=== PATIENT | female | born 1975 ===

== ENCOUNTER 2016-12-05 19:01 | Emergency (ER) | payer MEDICAID, OTHER ==
[~2016-12-05] VITALS: Ht 157.5 cm; Wt 145.4 kg
[~2016-12-05 19:01] MED LIST: AMOX-366 PO; AMOX500T2 PO; HYDR-3090 PO; HYDR-3797 PO; HYG25 PO; INSU100V7 SUBQ; LISI-567 PO; LORA10CA PO; SYRI-233 MC
[2016-12-05 19:22] VITALS: BP 136/69; PULSE 82; O2SAT 97
--- NOTE | 2016-12-05 20:57 | ED.REPORT ---
HPI-General Illness Date of Service Dec 05, 2016 ED Provider: Peng Aguillon MD The patient is a 41 year old female with history of asthma, hypertension, heart failure, and diabetes mellitus type I, who presents to the emergency department complaining of a cough that has been ongoing over the last month. She has experienced a cough with green/brown sputum, chest pain secondary to cough, and sinus pressure. She was seen at urgent care and sent home with cough medicine with codeine. This morning she woke up feeling worse and developed increased sinus pressure, headache, and myalgias. She denies fever, chills, vomiting or diarrhea. Nursing Notes Stated Complaint: SINUS PRESSURE, COUGH, MIGRAINES Chief Complaint: General Complaint Nursing Notes Reviewed: Yes Allergies: Coded Allergies: No Known Allergies (Verified Allergy, Unknown, 11/07/15) Scheduled Amoxicillin (Amoxicillin) 500 Mg Tablet 1,000 MG PO BID Amoxicillin/Clav K 875-125 mg (Augmentin 875-125 mg) 1 Each Tablet 1 TABLET PO BID Chlorthalidone (Chlorthalidone) 25 Mg Tablet 25 MG PO DAILY Insulin Glargine (Lantus U100 Insulin Vial) 100 Unit/Ml Vial 60 UNIT SUBQ HS Lisinopril (Lisinopril) 20 Mg Tablet 20 MG PO DAILY Loratadine (Claritin) 10 Mg Capsule 10 MG PO DAILY Scheduled PRN Hydrocodone-Acetaminophen 5-300 mg (Hydrocodone-Acetaminophen 5-300 mg) 1 Each Tablet 1 TABLET PO Q4H PRN PRN For Pain Hydroxyzine Pamoate (HydrOXYzine Pamoate) 25 Mg Capsule 25-50 MG PO HS PRN PRN For Insomnia General Time Seen by MD: 20:55 Chief Complaint Cough Hx Obtained From: Patient Arrived By: Walk-in Sudden in Onset?: No Onset Occurred: More than a week ago... Symptom Duration: Since onset Location: : Chest: Face Quality: Painful Severity: Current: Moderate Severity: Maximum: Moderate Recent Healthcare: No recent hospitalization, Recent doctor visit Similar Sx Previous: No Past Medical History Past Medical History Morbid obese Diabetes, type II Asthma Hypertension History of diastolic heart failure chronic History of clinically suspected obstructive sleep apnea and obesity hypoventilation syndrome Past Surgical History Patient is status post a right oophorectomy and exlao for right tubo-ovarian abscess with sepsis on 07/22/2014 with a chronic wound followed at the wound care center Hernia repair x2, Ovary removal Reports: , Hysterectomy Family History Reports: Hypertension Smoking History Former Smoker Social History Alcohol Use: Denies alcohol use Drug Use: Denies drug use Occupation lives with partner Ambulatory Status Independent Review of Systems Full Review of Systems Constitutional: Denies: Chills, Fever Ears / Nose / Throat: Reports: Nasal congestion, Sinus problem Respiratory: Reports: Prod cough, brown, Prod cough, green Cardiovascular: Reports: Chest pain (secondary to cough) GI: Denies: Diarrhea, Vomiting Musculoskeletal: Reports: Myalgia Complete sys rev & neg: except as marked. Physical Exam Vital Signs Vital Signs Date Time Temp Pulse Resp B/P Pulse Ox O2 Delivery O2 Flow Rate FiO2 12/05/16 19:22 35.5 82 136/69 97 Room Air Initial VS: Reviewed Head / Eyes: Atraumatic, Normocephalic, PERRL Neck: Supple, Non-tender, Full range of motion Cardiovascular: Regular rate & rhythm, Heart sounds normal, Intact distal pulses Abdomen / GI: Soft, Non-tender, No guarding, No rebound, No distention Lymphatic: No lymphadenopathy Extremities: Vascular intact, Neuro intact, No swelling, No tenderness Skin: Warm, Dry, No cyanosis Neurologic: Alert, Oriented, Nonfocal Psychiatric: Mood/affect normal, Behavior normal, Normal thought content General/Constitutional: Awake, Alert, No acute distress, Cooperative ENT: Airway patent, Pharynx NL, Tympanic membs NL, Ext aud canal NL, Mastoid area NL Sinus: Positive: Tender frontal L, Tender frontal R, Tender maxillary L, Tender maxillary R, Tender moderate Respiratory / Chest: Breath sounds = bilat, No respiratory distress, No rales, No rhonchi Wheezing / Retractions: Positive: Wheezing mild Re-Eval/Medical Decision Source of Hx: Old records Time of Eval: 21:09 Re-Evaluation/Progress Note: Discussed plan for discharge. All questions were addressed. Counseled Regarding: Diagnosis, Need for follow-up, When/why to return to ED Discharge & Departure Primary Impression: Sinusitis Sinusitis location: unspecified location Chronicity: unspecified Qualified Code: J32.9 - Chronic sinusitis, unspecified Disposition: Home Discharge Condition All VS Reviewed: Yes Condition: Stable Patient Instructions: Sinusitis (ED) Additional Instructions: Thank you for entrusting us with your care today. I believe you will significantly benefit from nasal irrigation. I recommend using warm water while you are in the shower. Make sure you are getting the water up your nose and back into your throat. I recommend doing this 3-4 times a day. This will help clear your sinuses and relieve some of the pressure. You should also use a nasal decongestant. Do not use any antihistamines. Make sure to drink plenty of fluids. If you symptoms continue you should be seen by your primary doctor in 1 week. Seek care sooner for any new or concerning symptoms. Referrals: Paty Bergeron MD Attestation Portions of this note were transcribed by Dee Woods. I, Dr. Aguillon personally performed the history, physical exam and medical decision-making; I reviewed and confirmed the accuracy of the information in the transcribed note. Signed by: Chad Rubio, 12/05/2016 at 2130. copies to: Paty Bergeron MD, Kirk H MD Dec 05, 2016 20:57 Dee Woods Dec 05, 2016 21:13 Dee Woods Dec 05, 2016 21:13
[2016-12-05] MEDS ORDERED: BENZ-12 PO (21:36)
== END 2016-12-05 21:50 | disposition home or self-care (01) ==
LOC: SED 19:01
DX: J32.9 Chronic sinusitis, unspecified (principal); I11.0 Hypertensive heart disease with heart failure; I50.32 Chronic diastolic (congestive) heart failure; E11.59 Type 2 diabetes mellitus with other circulatory complications; Z87.891 Personal history of nicotine dependence; Z79.4 Long term (current) use of insulin

== ENCOUNTER 2017-03-22 18:59 | Emergency (ER) | payer MEDICAID, OTHER ==
[~2017-03-22] VITALS: Ht 157.5 cm; Wt 154.6 kg
[~2017-03-22 18:59] MED LIST changes: +BENZ-12 PO
[2017-03-22 19:21] VITALS: BP 139/77; PULSE 68; RESP 18; O2SAT 97
[2017-03-22] MEDS ORDERED: Ondansetron 2 mg/mL 2 mL Inj IVPUSH PRN (21:15)
--- NOTE | 2017-03-22 21:46 | ED.REPORT ---
HPI-Abd Pain F 40 and Over Date of Service Mar 22, 2017 ED Provider: Wing Odom MD Pt is a morbidly obese 41 y/o female w/ a hx of IDDM, HTN, CHF, presenting to the ED c/o worsening intermittent LLQ abdominal pain onset 1 week ago. Her pain today feels similar to prior pelvic pain caused by a large right tubo-ovarian abscess which required surgical removal of the ovary. She c/o associated nausea. She denies chance of , vaginal bleeding or abnormal discharge, CP, vomiting, dysuria, fever, chills. Her last period was last month. Abdominal surgeries include: right ovary removal, hernia repair x2, x3. She states her recent periods have been much heavier than usual and lasting 7 days, increased from her usual 3. Nursing Notes Stated Complaint: PAIN ON LEFT SIDE OVARY Chief Complaint: Female Abdominal Pain Nursing Notes Reviewed: Yes Allergies: Coded Allergies: No Known Allergies (Verified Allergy, Unknown, 11/07/15) Scheduled Amoxicillin (Amoxicillin) 500 Mg Tablet 1,000 MG PO BID Amoxicillin/Clav K 875-125 mg (Augmentin 875-125 mg) 1 Each Tablet 1 TABLET PO BID Cephalexin (Keflex) 500 Mg Capsule 500 MG PO QID Chlorthalidone (Chlorthalidone) 25 Mg Tablet 25 MG PO DAILY Insulin Glargine (Lantus U100 Insulin Vial) 100 Unit/Ml Vial 60 UNIT SUBQ HS Lisinopril (Lisinopril) 20 Mg Tablet 20 MG PO DAILY Loratadine (Claritin) 10 Mg Capsule 10 MG PO DAILY Scheduled PRN Benzonatate (Tessalon Perle) 100 Mg Capsule 100 MG PO TID PRN PRN For Cough Hydrocodone-Acetaminophen 5-300 mg (Hydrocodone-Acetaminophen 5-300 mg) 1 Each Tablet 1 TABLET PO Q4H PRN PRN For Pain Hydrocodone-Acetaminophen 5-325 mg (Hydrocodone-Acetaminophen 5-325 mg) 1 Each Tablet 1 TABLET PO Q4H PRN PRN For Pain Hydroxyzine Pamoate (HydrOXYzine Pamoate) 25 Mg Capsule 25-50 MG PO HS PRN PRN For Insomnia General Time Seen by MD: 21:08 Chief Complaint Abdominal pain Hx Obtained From: Patient Arrived By: Walk-in Sudden in Onset?: No Onset Occurred: 1 week ago Symptom Duration: Since onset Progression since Onset: Intermittent Location: : LLQ Quality: Painful Radiation: : Does not radiate Severity: Current: Moderate Severity: Maximum: Moderate Recent Healthcare: Previous diagnosis Similar Sx Previous: Yes Past Medical History Past Medical History Morbidly obese Diabetes, type II Asthma Hypertension History of diastolic heart failure chronic History of clinically suspected obstructive sleep apnea and obesity hypoventilation syndrome Past Surgical History Patient is status post a right oophorectomy and exlao for right tubo-ovarian abscess with sepsis on 07/22/2014 with a chronic wound followed at the wound care center Hernia repair x2, Ovary removal Reports: , Hysterectomy Family History Reports: Hypertension Smoking History Former Smoker Social History Alcohol Use: Denies alcohol use Drug Use: Denies drug use Occupation lives with partner Ambulatory Status Independent Review of Systems Constitutional: Denies: Chills, Fever Respiratory: Denies: Non-productive cough, Shortness of breath Cardiovascular: Denies: Chest pain, Dyspnea on exertion GI: Reports: Abdominal pain, Nausea, Denies: Vomiting Female: Denies: Dysuria, Vaginal bleeding - abnl, Vaginal discharge Complete sys rev & neg: except as marked. Physical Exam Vital Signs Vital Signs (First) Date Time Temp Pulse Resp B/P Pulse Ox O2 Delivery O2 Flow Rate FiO2 03/22/17 19:21 36.7 68 18 139/77 97 Room Air Initial VS: Reviewed, Vital signs normal Head / Eyes: Atraumatic, Normocephalic, PERRL ENT: Mucous membranes moist, Conjunctiva normal, No scleral icterus Neck: Supple, Full range of motion Extremities: Vascular intact, Neuro intact, No swelling Skin: Warm, Dry, No cyanosis Neurologic: Alert, Oriented, Nonfocal Psychiatric: Mood/affect normal, Behavior normal, Normal thought content General/Constitutional: Awake, Alert, No acute distress, Cooperative, Not toxic appearing Appearance / Presentation: Positive: Obese, morbidly Respiratory / Chest: Breath sounds NL, Breath sounds = bilat, No respiratory distress, No rales, No rhonchi, No wheezing Cardiovascular: Heart rate NL, Regular rhythm, Heart sounds NL, No murmurs Abdomen: Atraumatic, Soft, No guarding, No rebound, No distention Tenderness/Guarding/Rebound: Positive: Tender LLQ... (Mild) Morbidly obese Back: Full range of motion, Painless range of motion, No CVA tenderness Female Genitourinary: Hat Maker present, No bleeding, No discharge, No cervical motion tend, Os closed Mild left adnexal tenderness Interpretation & Diagnostics Lab Results Interpretation Result Diagram: 03/22/17215303/22/[id number] Test 03/22/17 21:41 03/22/17 21:54 Urine Color Yellow (YELLOW) Urine Appearance Cloudy (CLEAR,HAZY) Urine pH 7.0 (5.0-8.0) Urine Specific [place] 1.014 (1.003-1.035) Urine Protein Negativemg/dL (NEG,TRACE) Urine Glucose (UA) Negativemg/dL (NEGATIVE) Urine Ketones Negativemg/dL (NEGATIVE) Urine Occult Blood Negative (NEGATIVE) Urine Nitrite Negative (NEGATIVE) Urine Bilirubin Negative (NEGATIVE) Urine Urobilinogen 2mg/dL (NORMAL) Urine Leukocyte Esterase Moderate (NEGATIVE) Urine RBC 0-2/hpf (0-2) Urine WBC 11-50/hpf (0-5) Urine Epithelial Cells Many/hpf (NONE-MOD) Urine Crystals None seen (NONE SEEN) Urine Bacteria Many/hpf (NONE-FEW) Urine Hyaline Casts None/lpf (NONE) Urine Granular Casts None seen (NONE SEEN) Urine Waxy Casts None seen (NONE SEEN) Urine Red Blood Cell Casts None seen (NONE SEEN) Urine White Blood Cell Casts None seen (NONE SEEN) Urine Mucus None seen (None Seen) Urine Trichomonas None seen (NONE SEEN) Urine Yeast None (NONE SEEN) Urinalysis Comment Transitional epi Urine Culture Reflexed Indicated White Blood Count 13.3th/mm3 (3.8-10.1) Red Blood Count 5.48mil/mm3 (3.90-5.20) Hemoglobin 12.3g/dL (12.0-15.6) Hematocrit 40.2% (35.0-46.0) Mean Corpuscular Volume 73.4fL (81-100) Mean Corpuscular Hemoglobin 22.4pg (27.0-35.0) Mean Corpuscular Hemoglobin Concent 30.6% (32.0-37.0) Red Cell Distribution Width 16.5% (12.3-15.4) Platelet Count 374bil/L (150-400) Neutrophils (%) (Auto) 61.3% (40-74) Lymphocytes (%) (Auto) 30.8% (14-46) Monocytes (%) (Auto) 4.4% (4-12) Eosinophils (%) (Auto) 2.7% (0-5) Basophils (%) (Auto) 0.3% (0-3) Sodium Level 138mEq/L (134-144) Potassium Level 4.0mEq/L (3.5-5.2) Chloride Level 102mEq/L (97-108) Carbon Dioxide Level 24mmol/L (18-29) Blood Urea Nitrogen 7mg/dL (6-24) Creatinine 0.69mg/dL (0.57-1.00) Estimat Glomerular Filtration Rate 134mL/min (>59) Glucose Level 118mg/dL (60-99) Calcium Level 8.9mg/dL (8.5-10.1) Magnesium Level 2.2mg/dL (1.6-2.6) Total Bilirubin 0.4mg/dL (0.0-1.2) Aspartate Amino Transf (AST/SGOT) 23U/L (0-50) Alanine Aminotransferase (ALT/SGPT) 21U/L (0-32) Alkaline Phosphatase 108U/L (25-150) Total Protein 8.3g/dL (6.4-8.4) Albumin 3.9g/dL (3.4-5.0) Lipase 35U/L (13-60) US Focused non-OB Pelvis 2 large ovarian cysts on left. Good blood flow to left ovary Exam Performed by: [facility] Exam Interpreted by: [facility] Re-Eval/Medical Decision Med Decision/Clinical Course 41-year-old female presenting with left lower quadrant, left adnexal tenderness intermittent times one week. Her vital signs are stable. She has mild left suprapubic tenderness. Mild left adnexal tenderness on exam. Urine suggests UTI. Her labs are unremarkable. Pelvic ultrasound shows 2 large left ovarian cyst. Exam shows no evidence of discharge, cervical motion tenderness. Pain possibly due to her left ovarian cyst versus UTI. She has no sensitives pyelonephritis. She would treat it with Keflex for a UTI. Recommend she follow up with primary doctor in 2-3 days for possible referral to [facility] for ovarian cysts. Also follow-up for her UTI. She is advised to return if any sign symptoms pyelonephritis, worsening back pain, abdominal pain, fevers, nausea vomiting, worsening left lower quadrant pain, any other new or worsening symptoms. Source of Hx: Old records Re-Evaluation/Progress : Time of Eval: 23:59 Re-Evaluation/Progress Note: Pt rechecked. Informed pt of plan for discharge. Pt understands and agrees with plan for discharge. F/U instructions and RTER warnings given. All questions addressed. Counseled Regarding: Diagnosis, Lab results, Need for follow-up, When/why to return to ED Discharge & Departure Primary Impression: UTI (urinary tract infection) Urinary tract infection type: site unspecified Hematuria presence: without hematuria Qualified Code: N39.0 - Urinary tract infection, site not specified Additional Impressions: Ovarian cyst, left Abdominal pain Abdominal location: left lower quadrant Qualified Code: R10.32 - Left lower quadrant pain Disposition: Home Discharge Condition All VS Reviewed: Yes Condition: Stable Patient Instructions: Urinary Tract Infection in Women (ED) Additional Instructions: Your urine showed signs of infection. The rest of your labs were reassuring. The ultrasound showed that you have 2 large ovarian cysts on your left ovary. Take the full course of Keflex as directed for the UTI. Return to the emergency department if you experience worsening abdominal pain, severe back or flank pain, fever, vomiting, or other concerning symptoms. Follow-up with your primary care doctor in 2-3 days for a recheck. Referrals: Martha Sepulveda MD (PCP) Chad Attestation Portions of this note were transcribed by Jimmie Cruz. I, Dr. Odom personally performed the history, physical exam and medical decision-making; I reviewed and confirmed the accuracy of the information in the transcribed note. Signed by Chad Sousa, 03/22/[id number] copies to: Martha Sepulveda MD, Ben M MD Mar 22, 2017 21:45 JIMMIE CRUZ Mar 22, 2017 21:52
[2017-03-22 21:56] VITALS: BP 152/59; PULSE 71; O2SAT 97
[2017-03-22 22:20] LABS: BASOPHILS % (AUTO) 0.3 % (0-3); EOSINOPHILS % (AUTO) 2.7 % (0-5); MONOCYTES % (AUTO) 4.4 % (4-12); Mean Corpuscular Hemoglobin 22.4 pg (27.0-35.0); Mean Corpuscular Volume 73.4 fL (81-100); NEUTROPHILS % (AUTO) 61.3 % (40-74); Platelet Count 374 bil/L (150-400)
[2017-03-22 22:33] LABS: Magnesium 2.2 mg/dL (1.6-2.6)
[2017-03-22 23:12] LABS: APPEARANCE,URINE CLOUDY (CLEAR,HAZY); COLOR,URINE YELLOW (YELLOW)
[2017-03-22 23:14] LABS: OCCULT BLOOD,URINE NEGATIVE (NEGATIVE); UROBILINOGEN,URINE 2 mg/dL (NORMAL)
[2017-03-22] MEDS ORDERED: CEPH-512 PO (23:20)
[2017-03-22] MEDS ORDERED: HYDR-4003 PO (23:58)
[2017-03-23] MEDS ORDERED: HYDROcodone-APAP 5-325 mg Tablet PO ONE
[2017-03-23 00:43] VITALS: BP 134/72; PULSE 70; O2SAT 95
--- NOTE | 2017-03-23 08:26 | DRSVH ---
PROCEDURE: US PELVIC SONOGRAM + TRANSVAGINAL SONOGRAM INDICATIONS: Left adnexal tenderness TECHNIQUE: Real-time scanning was performed of the pelvic organs, with image documentation. Additional endovagi nal scanning was necessary due to incomplete visualization of the adnexal and endometrial structures by transabdominal scanning. COMPARISON: [facility], [place], US PELVIC+TRANSVAG, 11/07/2015, 16:41. FINDINGS: (orthogonal measurements) Uterus size: 7.83 cm, 3.86 cm, 5.35 cm Endometrium thickness: 1.14 cm Left ovary size: 6.66 cm, 5.00 cm, 5.00 cm Transabdominal scanning: Limited scanning through the kidneys shows no hydronephrosis. No pathologi c free abdominal or pelvic fluid. Endovaginal scanning: Uterus: Uterus is normal in size and appearance. Endometrium is within normal physiologic limits. Ovaries: 2 simple cysts involving left ovary measuring 4.3 x 3.3 x 3.6 cm and 4.2 x 3.8 x 4.4 cm. Ri ght ovary surgically absent. Color-flow Doppler demonstrates normal flow within the left ovary. Tra ce left adnexal nonhemorrhagic free fluid. IMPRESSION: 2 simple cysts involving the right ovary. Continued sonographic surveillance is recommen ded. Note: These findings are concordant with the preliminary interpretation. Dictated by: Severiano WESTON Interpreted: Hung Ramos MD on 03/23/2017 at 8:21 Transcribed by: SHAVON on 03/23/2017 at 8:25 Approved by: Hung Ramos M.D. on 03/23/2017 at 9:16
== END 2017-03-23 00:46 | disposition home or self-care (01) ==
LOC: SED 18:59
DX: N39.0 Urinary tract infection, site not specified (principal); B96.20 Unspecified Escherichia coli [E. coli] as the cause of diseases classified elsewhere; N83.202 Unspecified ovarian cyst, left side; R10.32 Left lower quadrant pain; I11.0 Hypertensive heart disease with heart failure; I50.32 Chronic diastolic (congestive) heart failure; E11.59 Type 2 diabetes mellitus with other circulatory complications; J45.909 Unspecified asthma, uncomplicated; Z87.891 Personal history of nicotine dependence; Z79.4 Long term (current) use of insulin
CPT/HCPCS: 36415; 76830; 76856; 80053; 81000; 81025; 83690; 83735; 85025; 87077; 87086; 87088; 87186; 96374; 96375; 99285; J2270; J2405

== ENCOUNTER 2017-04-03 14:39 | Inpatient (IN) | payer MEDICAID, OTHER ==
[~2017-04-03] VITALS: Ht 157.5 cm; Wt 157.0 kg
[~2017-04-03 14:39] MED LIST changes: +CEPH-512 PO; +HYDR-4003 PO
[2017-04-03 14:41] VITALS: BP 138/78; PULSE 79; RESP 16; O2SAT 98
[2017-04-03] MEDS ORDERED: Ondansetron 2 mg/mL 2 mL Inj IVPUSH ONE ×2 (14:55→20:05)
[2017-04-03] MEDS ORDERED: Ketorolac 15 mg/mL Inj IVPUSH ONE (14:55)
[2017-04-03] MEDS ORDERED: 0.9% Sodium Chloride 1,000 ML IV ONE (14:55)
--- NOTE | 2017-04-03 14:55 | ED.REPORT ---
HPI-General Illness Date of Service Apr 03, 2017 ED Provider: Ki Collins MD The pt is a 41 y/o female with a hx of IDDM, HTN, CHF and right tubo-ovarian abscess (leading to surgical removal of her right ovary) who presents to the ED complaining of intermittent, non-radiating left lower quadrant abdominal pain for the last 3 weeks that worsened last night. She describes it as a stabbing pain and rates it 10/10 in severity. Associated sx include nausea and vomiting. She denies abnormal vaginal discharge, abnormal vaginal bleeding, dysuria, hematochezia, hematuria, fever, diarrhea and chest pain . She is not sexually active. Her current sx are similar to the time she was diagnosed with right tubo -ovarian abscess. She was seen at the ED last week for the same complaint. Her ultrasound at the time showed 2 large ovarian cysts on the left with good blood flow to left ovary and she was discharged with Keflex. She also states that before her previous visit, she did experience heavy, abnormal vaginal bleeding. Nursing Notes Stated Complaint: VOMITING,POSS OVARY CYST Chief Complaint: Female Abdominal Pain Nursing Notes Reviewed: Yes Allergies: Coded Allergies: No Known Allergies (Verified Allergy, Unknown, 04/03/17) Scheduled Amoxicillin (Amoxicillin) 500 Mg Tablet 1,000 MG PO BID Amoxicillin/Clav K 875-125 mg (Augmentin 875-125 mg) 1 Each Tablet 1 TABLET PO BID Cephalexin (Keflex) 500 Mg Capsule 500 MG PO QID Chlorthalidone (Chlorthalidone) 25 Mg Tablet 25 MG PO DAILY Insulin Glargine (Lantus U100 Insulin Vial) 100 Unit/Ml Vial 60 UNIT SUBQ HS Lisinopril (Lisinopril) 20 Mg Tablet 20 MG PO DAILY Loratadine (Claritin) 10 Mg Capsule 10 MG PO DAILY Meloxicam (Meloxicam) 7.5 Mg Tablet 7.5 MG PO BID Scheduled PRN Benzonatate (Tessalon Perle) 100 Mg Capsule 100 MG PO TID PRN PRN For Cough Hydrocodone-Acetaminophen 5-300 mg (Hydrocodone-Acetaminophen 5-300 mg) 1 Each Tablet 1 TABLET PO Q4H PRN PRN For Pain Hydrocodone-Acetaminophen 5-325 mg (Hydrocodone-Acetaminophen 5-325 mg) 1 Each Tablet 1 TABLET PO Q4H PRN PRN For Pain Hydroxyzine Pamoate (HydrOXYzine Pamoate) 25 Mg Capsule 25-50 MG PO HS PRN PRN For Insomnia Ibuprofen (Ibuprofen) 400 Mg Tablet 400 MG PO QID PRN PRN For Pain General Time Seen by MD: 14:54 Chief Complaint Abdominal pain Hx Obtained From: Patient Arrived By: Walk-in Sudden in Onset?: No Onset Occurred: More than a week ago... (3 weeks) Symptom Duration: Intermittent Location: : Abdomen Quality: Stabbing Severity: Current: Pain level 10 out of 10 Severity: Maximum: Pain level 10 out of 10 Recent Healthcare: Recent doctor visit Similar Sx Previous: Yes Past Medical History Past Medical History Morbidly obese Diabetes, type II Asthma Hypertension History of diastolic heart failure chronic History of clinically suspected obstructive sleep apnea and obesity hypoventilation syndrome Past Surgical History Patient is status post a right oophorectomy and exlao for right tubo-ovarian abscess with sepsis on 07/22/2014 with a chronic wound followed at the wound care center Hernia repair x2, Ovary removal Reports: , Hysterectomy Family History Reports: Hypertension Smoking History Former Smoker Social History Alcohol Use: Denies alcohol use Drug Use: Denies drug use Occupation lives with partner Ambulatory Status Independent Review of Systems Full Review of Systems Constitutional: Denies: Fever Eyes: Denies: Blurred bilateral, Diplopia Ears / Nose / Throat: Denies: Throat swelling Respiratory: Denies: Shortness of breath Cardiovascular: Denies: Chest pain GI: Reports: Abdominal pain, Nausea, Vomiting, Denies: Diarrhea, Hematochezia Female: Denies: Dysuria, Hematuria, Vaginal bleeding - abnl, Vaginal discharge Musculoskeletal: Denies: Back pain Hematologic: Denies Bruising Endocrine: Denies: Polyuria Allergy / Immune: Denies: Itching Neurologic: Denies: Headache Psychiatric: Denies: Change mental status Complete sys rev & neg: except as marked. Physical Exam Nursing note and vitals reviewed. Constitutional: Well-developed, well-nourished. Not diaphoretic. Head: Normocephalic and atraumatic. Mouth/Throat: Oropharynx is clear and moist. No oropharyngeal exudate. Eyes: EOM are normal. Pupils are equal, round, and reactive to light. Neck: Supple, no tracheal deviation. Cardiovascular: Normal rate,regular rhythm. Equal and intact distal pulses throughout. Pulmonary/Chest: Effort normal and breath sounds normal. No respiratory distress. Abdominal: Soft. No distension. There is lower left quadrant tenderness to palpation without rebound, or guarding. Bowel sounds present. Musculoskeletal: Range of motion grossly intact, moving all extremities. No edema or tenderness appreciated. Neurological: AOx3. Grossly nonfocal exam. Strength and sensation intact and equal to bilateral upper and lower extremities. Skin: Warm and dry, no rashes or pallor appreciated. Psychiatric: Appropriate mood and affect. Behavior appears normal. Female : Research [employer] present. Limited exam due to body habitus.Unable to palpate cervix.No discharge. Don't appreciate adnexal fullness. Vital Signs Vital Signs Date Time Temp Pulse Resp B/P Pulse Ox O2 Delivery O2 Flow Rate FiO2 04/03/17 19:48 80 17 145/75 95 Room Air 04/03/17 14:41 36.7 79 16 138/78 98 Room Air Initial VS: Reviewed Interpretation & Diagnostics PROCEDURE: US PELVIC SONOGRAM + TRANSVAGINAL SONOGRAM IMPRESSION: 1. Other than a fibroid and nabothian cyst the uterus is normal. 2. The left ovary is enlarged and includes organs involved by a cystic structure. This is best seen on CT scan. It has enlarged since previous CT scans. Although unlikely malignancy cannot be excluded. Dictated by: Teo Noriega M.D. on 04/03/2017 at 18:38 Approved by: Teo Noriega M.D. on 04/03/2017 at 18:42 Lab Results Interpretation Result Diagram: 04/03/17 1550 04/03/17 1550 Test 04/03/17 15:50 04/03/17 16:56 04/03/17 17:02 04/03/17 17:31 White Blood Count 9.9th/mm3 (3.8-10.1) Red Blood Count 5.50mil/mm3 (3.90-5.20) Hemoglobin 12.3g/dL (12.0-15.6) Hematocrit 40.2% (35.0-46.0) Mean Corpuscular Volume 73.1fL (81-100) Mean Corpuscular Hemoglobin 22.4pg (27.0-35.0) Mean Corpuscular Hemoglobin Concent 30.6% (32.0-37.0) Red Cell Distribution Width 16.5% (12.3-15.4) Platelet Count 316bil/L (150-400) Neutrophils (%) (Auto) 59.8% (40-74) Lymphocytes (%) (Auto) 31.9% (14-46) Monocytes (%) (Auto) 5.0% (4-12) Eosinophils (%) (Auto) 2.6% (0-5) Basophils (%) (Auto) 0.3% (0-3) Sodium Level 140mEq/L (134-144) Potassium Level 4.1mEq/L (3.5-5.2) Chloride Level 103mEq/L (97-108) Carbon Dioxide Level 23mmol/L (18-29) Blood Urea Nitrogen 8mg/dL (6-24) Creatinine 0.66mg/dL (0.57-1.00) Estimat Glomerular Filtration Rate 141mL/min (>59) Glucose Level 139mg/dL (60-99) Calcium Level 8.6mg/dL (8.5-10.1) Magnesium Level 2.0mg/dL (1.6-2.6) Total Bilirubin 0.7mg/dL (0.0-1.2) Aspartate Amino Transf (AST/SGOT) 22U/L (0-50) Alanine Aminotransferase (ALT/SGPT) 18U/L (0-32) Alkaline Phosphatase 103U/L (25-150) Total Protein 8.0g/dL (6.4-8.4) Albumin 3.7g/dL (3.4-5.0) Lipase 28U/L (13-60) Lactic Acid Level 0.8mmol/L (0.4-2.0) Urine Color Dark yellow (YELLOW) Urine Appearance Cloudy (CLEAR,HAZY) Urine pH 6.0 (5.0-8.0) Urine Specific [place] 1.030 (1.003-1.035) Urine Protein Tracemg/dL (NEG,TRACE) Urine Glucose (UA) Negativemg/dL (NEGATIVE) Urine Ketones Negativemg/dL (NEGATIVE) Urine Occult Blood Trace (NEGATIVE) Urine Nitrite Negative (NEGATIVE) Urine Bilirubin Negative (NEGATIVE) Urine Urobilinogen Normalmg/dL (NORMAL) Urine Leukocyte Esterase Trace (NEGATIVE) Urine RBC 3-10/hpf (0-2) Urine WBC 11-50/hpf (0-5) Urine Epithelial Cells Moderate/hpf (NONE-MOD) Urine Crystals None seen (NONE SEEN) Urine Bacteria Few/hpf (NONE-FEW) Urine Hyaline Casts None/lpf (NONE) Urine Granular Casts None seen (NONE SEEN) Urine Waxy Casts None seen (NONE SEEN) Urine Red Blood Cell Casts None seen (NONE SEEN) Urine White Blood Cell Casts None seen (NONE SEEN) Urine Mucus Present (None Seen) Urine Trichomonas None seen (NONE SEEN) Urine Yeast None (NONE SEEN) Urinalysis Comment None Urine Culture Reflexed Indicated CT Abd / Pelvis Interpretation IMPRESSION: 1. 41 x 56 x 69 mm heterogeneous cystic and solid lesion in the left adnexa. This is similar to but more prominent in size than the lesion appeared on the CT scan of 11/07/15 at which time it measured 5.4 x 3 x 5.8 mm. Malignancy is not excluded. No free fluid is identified. 2. Diffusely fatty liver. 3. Ventral hernias as described. Dictated by: Teo Noriega M.D. on 04/03/2017 at 18:18 case was discussed with Dr. Collins. Approved by: Teo Noriega M.D. on 04/03/2017 at 18:35 Study type: Abdominal CT IV contrast Interpretation / Wet Read by: Interpret - Radiologist Re-Eval/Medical Decision Med Decision/Clinical Course In summary, 41-year-old female with a history of a tubo-ovarian abscess presenting to the ED for evaluation of left lower quadrant pain. Differential is broad and includes tubo-ovarian abscess, small bowel obstruction, diverticulitis, inflammatory bowel disease, ovarian torsion, intra-abdominal/ intrapelvic mass, appendicitis, pyelonephritis, kidney stone. Initial laboratory studies here notable for a CBC and CMP grossly within normal limits. Lipase within normal limits. She does have 11-50 white blood cells in her urine, however also moderate epithelial cells, no dysuria; suspect that this is likely contamination, however urine culture sent. Pelvic exam with no obvious masses appreciated, however limited by patient's habitus. Ultrasound demonstrates an enlarged left ovary with possible mass. CT scan demonstrates a 4 x 6 x 7 heterogeneous cystic and solid lesion in the left adnexa. Unclear what exactly this is at this time; differential includes malignancy, hemorrhagic cyst, etc. Discussed with NUMERICAL CONTROL MACHINE MACHINIST as noted below. Patient given multiple doses of Dilaudid IV here in the ED with only minimal improvement in symptoms. Also given Zofran and IV fluids. Hemodynamically stable. Given the above, plan admission for further management and evaluation. Patient agreeable to the plan as stated, no further questions. Source of Hx: Old records Time of Eval: 19:39 Re-Evaluation/Progress Note: Rechecked pt. Discussed lab results, imaging results, diagnosis and the plan to consult her NUMERICAL CONTROL MACHINE MACHINIST. She understands and agrees with the plan. All questions answered. Time of Eval: 20:00 Re-Evaluation/Progress Note: Rechecked the pt. She would like to be admitted. Discussed the plan to admit. The pt understands and agrees. All questions answered. Consultation #1: Call Returned at: 19:52 Stagecraft Teacher: Will see patient Note: Consulted Dr. Joiner, conveyor belt installer for Dr. Lyn, pt's NUMERICAL CONTROL MACHINE MACHINIST. She recommends pain control medications and follow up. Consultation #2: Referral / Consult Name: Mynor Moncada MD Call Returned at: 20:06 Stagecraft Teacher: Will see patient, Agrees with eval, Agrees with plan Note: Recommends pt stay NPO after midnight and pain control is okay. Consultation #3: Referral / Consult Name: Amy Mccarthy DO Consulted With: Hospitalist Call Returned at: 20:29 Stagecraft Teacher: Will see patient, Agrees with eval, Agrees with plan, Accepts admit Counseled Regarding: Diagnosis, Lab results Discharge & Departure Primary Impression: Pelvic pain Additional Impression: Pelvic mass Disposition: ADMITTED TO HOSPITAL Discharge Condition All VS Reviewed: Yes Referrals: Martha Sepulveda MD (PCP) Scribtal Attestation Portions of this note were transcribed by Gavi Radford. I,, personally performed the history, physical exam and medical decision-making;I reviewed and confirmed the accuracy of the information in the transcribed note. Signed by Chad Dougherty. 04/03/17 copies to: Martha Sepulveda MD,Ki Beard MD Apr 03, 2017 14:55 Gavi Radford Apr 03, 2017 15:02
[2017-04-03 16:19] LABS: Mean Corpuscular Hemoglobin 22.4 pg (27.0-35.0); Mean Corpuscular Volume 73.1 fL (81-100); Platelet Count 316 bil/L (150-400)
[2017-04-03 16:20] LABS: BASOPHILS % (AUTO) 0.3 % (0-3); EOSINOPHILS % (AUTO) 2.6 % (0-5); NEUTROPHILS % (AUTO) 59.8 % (40-74)
[2017-04-03] MEDS ORDERED: HYDROmorphone 0.5 mg/0.5 mL iSecure Syringe IVPUSH ONE ×2 (16:35→19:40)
[2017-04-03 17:55] LABS: APPEARANCE,URINE CLOUDY (CLEAR,HAZY); COLOR,URINE DARK YELLOW (YELLOW); OCCULT BLOOD,URINE TRACE (NEGATIVE); UROBILINOGEN,URINE NORMAL (NORMAL)
--- NOTE | 2017-04-03 18:37 | DRSVH ---
PROCEDURE: CT ABDOMEN AND PELVIS WITH CONTRAST ([id number]) INDICATIONS: LLQ pain TECHNIQUE: After the administration of intravenous contrast, 5 mm thick sections acquired from the diaphragm to the symphysis. 5 mm coronal and sagittal reformats were acquired. For radiation dose reduction, the following was used: automated exposure control, adjustment of mA and/or kV according to patient skip parada. COMPARISON: [facility], CT, ABD/PELVIS W/CON (PNL), 10/29/2014, 14:27. FINDINGS: Image quality: Excellent. ABDOMEN: Lung bases: Lung bases are clear. Heart size is normal. Solid organs: Liver and spleen are normal in size and enhancement. There is diffuse fatty infiltrati on within the liver. Gallbladder is within normal limits. Biliary system is non dilated. Pancreas enhances normally. No adrenal nodules. Kidneys demonstrate normal size and enhancement, without hyd ronephrosis. Peritoneum and bowel: Bowel loops demonstrate normal wall thickness and caliber. No free fluid or a ir. An appendix is not seen. There are scattered colonic diverticula no inflammation. Nodes and vessels: No retroperitoneal or mesenteric adenopathy by size criteria. Aorta and inferior vena cava are normal in size. Miscellaneous: There is a small supraumbilical fatty hernia. It is seen on series 4 image 51. There i s at the level of the umbilicus or chest caudal to it and internal [place] fatty hernia with a knuc kle of sigmoid colon. There is no obstruction. PELVIS: Genitourinary: Bladder wall thickness is normal. Right ovary is not appreciated on this study. Left adnexa shows a heterogeneous lesion measuring 41 x 56 x 69 mm. This appears to be cystic structure i n or around the left ovary. No free fluid is appreciated in the cul-de-sac or peritoneum. Miscellaneous: No inguinal hernias or adenopathy. Bones: No suspicious bony lesions. No vertebral body compression fractures. IMPRESSION: 1. 41 x 56 x 69 mm heterogeneous cystic and solid lesion in the left adnexa. This is similar to but m ore prominent in size than the lesion appeared on the CT scan of 11/07/15 at which time it measured 5. 4 x 3 x 5.8 mm. Malignancy is not excluded. No free fluid is identified. 2. Diffusely fatty liver. 3. Ventral hernias as described. Dictated by: Teo Noriega M.D. on 04/03/2017 at 18:18 case was discussed with Dr. Collins. Approved by: Teo Noriega M.D. on 04/03/2017 at 18:35
--- NOTE | 2017-04-03 18:44 | DRSVH ---
PROCEDURE: US PELVIC SONOGRAM + TRANSVAGINAL SONOGRAM INDICATIONS: LLQ abd pain, hx of TOA; also eval torsion TECHNIQUE: Real-time scanning was performed of the pelvic organs, with image documentation. Additional endovagi nal scanning was necessary due to incomplete visualization of the adnexal and endometrial structures by transabdominal scanning. COMPARISON: Located [facility], CT, CT ABD PELVIS W CON, 04/03/2017, 18:07. FINDINGS: Transabdominal scanning: Limited scanning through the kidneys shows no hydronephrosis. No pathologi c free abdominal or pelvic fluid. Endovaginal scanning: Uterus: Uterus is normal in size at 6.2 x 4.2 x 3.3 cm. The endometrium measures 2.7 mm in combined thickness. Nabothian cysts are present. There is a fibroid measuring 19 x 17 x 14 mm in the left ant erior myometrium. Ovaries: Because of difficulty determining position of ovaries this study is read in conjunction with a CT scan. CT confirms lack of right ovary and enlarged heterogeneous left ovary or adnexal lesion. On ultrasound this measures 62 x 31 x 70 mm. Within this fluid collection appears loculated there is what appears be a more normal ovary. Several small follicular type cysts are seen within it. IMPRESSION: 1. Other than a fibroid and nabothian cyst the uterus is normal. 2. The left ovary is enlarged and includes organs involved by a cystic structure. This is best seen o n CT scan. It has enlarged since previous CT scans. Although unlikely malignancy cannot be excluded. Dictated by: Teo Noriega M.D. on 04/03/2017 at 18:38 Approved by: Teo Noriega M.D. on 04/03/2017 at 18:42
[2017-04-03 19:48] VITALS: BP 145/75; PULSE 80; RESP 17; O2SAT 95
[2017-04-03] MEDS ORDERED: Alum-Mag Hydrox-Simeth 30 mL Suspension PO PRN (20:25)
[2017-04-03] MEDS ORDERED: Polyethylene Glycol (PEG) 17 Gm Powder PO PRN (20:25)
[2017-04-03] MEDS ORDERED: HYDROmorphone 1 mg/mL Inj IVPUSH ONE (21:00)
[2017-04-03 21:25] VITALS: BP 123/83; PULSE 69; RESP 21; O2SAT 95
[2017-04-03] MEDS ORDERED: Heparin 5,000 Unit/mL Inj SUBQ ONE (22:40)
[2017-04-03] MEDS ORDERED: HYDROmorphone 0.5 mg/0.5 mL iSecure Syringe IVPUSH PRN (22:40)
--- NOTE | 2017-04-03 22:45 | PCM.HPMED ---
Subjective Date of Service Apr 03, 2017 Primary Provider: Admitting Physician: Amy Mccarthy DO Primary Care Physician: Luke Mejía MD Attending Physician: Amy Mccarthy DO Chief Complaint: Abdominal pain History of Present Illness: Ms. Eliana Eli is a very pleasant 41 year old lady with a history insulin using diabetes mellitus currently not on medications, HTN, and CHF and right tubo-ovarian abscess (leading to surgical removal of her right ovary) who presents to the ED complaining of intermittent, non-radiating left lower quadrant abdominal pain for the last 3 weeks that worsened last night. She describes it as a stabbing pain and rates it 10/10 in severity like "menstrual pain times 50." She reports mild chills, nausea, dry heaves and constipation. She denies abnormal vaginal discharge, abnormal vaginal bleeding, dysuria, hematochezia, hematuria, fever, diarrhea and chest pain. She is not sexually active. She also states that before her previous visit, she did experience heavy, abnormal vaginal bleeding. Her current symptoms are similar to the time she was diagnosed with right tubo- ovarian abscess. In the ED the patients vitals were as follows: T - 36.7, HR - 79, RR - 16, BP - 138/78, 98 % RA. CT abdomen - 41 x 56 x 69 mm heterogeneous cystic and solid lesion in the left adnexa. This is similar to but more prominent in size than the lesion appeared on the CT scan of 11/07/15 at which time it measured 5.4 x 3 x 5.8 mm. Malignancy is not excluded. No free fluid is identified. Pelvis US - The left ovary is enlarged and includes organs involved by a cystic structure. This is best seen on CT scan. It has enlarged since previous CT scans. Although unlikely malignancy cannot be excluded. In the ED patient received - Ketorolac 15 mg injection, zofran 4mg x 2, dilaudid 0.5-1 mg x2, 1 L NS, NPO after midnight. Review of Systems: A comprehensive review of systems was conducted with the patient and found to be negative except as above in the History of Present Illness. Allergies Coded Allergies: No Known Allergies (Verified Allergy, Unknown, 04/03/17) Home Medications Scheduled Amoxicillin (Amoxicillin) 500 Mg Tablet 1,000 MG PO BID Amoxicillin/Clav K 875-125 mg (Augmentin 875-125 mg) 1 Each Tablet 1 TABLET PO BID Cephalexin (Keflex) 500 Mg Capsule 500 MG PO QID Chlorthalidone (Chlorthalidone) 25 Mg Tablet 25 MG PO DAILY Insulin Glargine (Lantus U100 Insulin Vial) 100 Unit/Ml Vial 60 UNIT SUBQ HS Lisinopril (Lisinopril) 20 Mg Tablet 20 MG PO DAILY Loratadine (Claritin) 10 Mg Capsule 10 MG PO DAILY Scheduled PRN Benzonatate (Tessalon Perle) 100 Mg Capsule 100 MG PO TID PRN PRN For Cough Hydrocodone-Acetaminophen 5-300 mg (Hydrocodone-Acetaminophen 5-300 mg) 1 Each Tablet 1 TABLET PO Q4H PRN PRN For Pain Hydrocodone-Acetaminophen 5-325 mg (Hydrocodone-Acetaminophen 5-325 mg) 1 Each Tablet 1 TABLET PO Q4H PRN PRN For Pain Hydroxyzine Pamoate (HydrOXYzine Pamoate) 25 Mg Capsule 25-50 MG PO HS PRN PRN For Insomnia PMH Morbidly obese Diabetes, type II Asthma Hypertension History of diastolic heart failure chronic History of clinically suspected obstructive sleep apnea and obesity hypoventilation syndrome Surgical History Patient is status post a right oophorectomy and exlap for right tubo-ovarian abscess with sepsis on 07/22/2014 with a chronic wound followed at the wound care center Hernia repair x2, Ovary removal Reports: 3x 's, Hysterectomy Family History Fathers side of the family all had "Heart disease, and her father is the only survivor." Mothers side Diabetes, "Purple ribbon cancer," heart disease. Social History Hx Alcohol Use: No Hx Substance Use: No Hx Tobacco Use: Yes Smoking Status: Former Smoker Exam Vital Signs Vital Sign - Last Date Time Temp Pulse Resp B/P Pulse Ox O2 Delivery O2 Flow Rate FiO2 04/03/17 21:25 36.9 69 21 123/83 95 Room Air Exam General: No acute distress, well-developed, obese, well-nourished, appropriately interactive HEENT: Normocephalic, atraumatic. External ears without defect. Pupils equal, round, and reactive to light and accommodation. Anicteric sclerae, moist conjunctivae, and no lid lag. Oropharynx free of erythema and cobble stoning with moist mucosa. Neck: Supple with full range of motion. No jugular venous distension. No bruits. No lymphadenopathy or thyromegaly. Cardiovascular: Regular rate and rhythm with no murmurs, rubs, or gallops appreciated Pulmonary: Clear to auscultation bilaterally with no crackles, wheezes, or rhonchi. Normal respiratory effort with no use of accessory muscles. Abdomen: Bowel tones present. Soft, obese, with ventral scars midline, nondistended. No hepatosplenomegaly or masses appreciated.There is lower left quadrant tenderness to palpation without rebound, or guarding. Extremities: No clubbing, cyanosis, edema, or lymphadenopathy appreciated. Skin: Normal temperature, turgor, and texture; no rash, ulcers, or subcutaneous nodules appreciated. Neurological: Cranial nerves grossly intact. Normal muscle strength, tone, and bulk. Reflexes, coordination, and sensory function within normal limits. No known gait impairment. Psychiatric: Normal mood and affect. Alert and oriented to person, place, and time. Lab and Diagnostics Result Diagram: 04/03/17 1550 04/03/17 1550 X-Rays, CTs and MRIs CT ABDOMEN AND PELVIS WITH CONTRAST IMPRESSION: 1. 41 x 56 x 69 mm heterogeneous cystic and solid lesion in the left adnexa. This is similar to but more prominent in size than the lesion appeared on the CT scan of 11/07/15 at which time it measured 5.4 x 3 x 5.8 mm. Malignancy is not excluded. No free fluid is identified. 2. Diffusely fatty liver. 3. Ventral hernias as described. Approved by: Teo Noriega M.D. on 04/03/2017 at 18:35 Additional Diagnostics: US PELVIC SONOGRAM + TRANSVAGINAL SONOGRAM IMPRESSION: 1. Other than a fibroid and nabothian cyst the uterus is normal. 2. The left ovary is enlarged and includes organs involved by a cystic structure. This is best seen on CT scan. It has enlarged since previous CT scans. Although unlikely malignancy cannot be excluded. Dictated by: Teo Noriega M.D. on 04/03/2017 at 18:38 Assessment & Plan Ms. Eliana Eli is a very pleasant 41 year old lady with a history insulin using diabetes mellitus currently not on medications, HTN, and CHF and right tubo-ovarian abscess (leading to surgical removal of her right ovary) who presents to the ED complaining of intermittent, non-radiating left lower quadrant abdominal pain for the last 3 weeks that worsened last night. Her current symptoms are similar to the time she was diagnosed with right tubo- ovarian abscess. She is NPO after midnight, pain control and OB consulted to see the patient in the AM. Abdominal pain, present on admission. Active. - Hx of multiple abdominal surgeries and prior tuboovarian abscess. - OB consulted, day team to contact OB in the am. - C. Trach / N. Jean pending. - CT / US as above. - Pain control IV Dilaudid. Diabetes - Not on home medications. - HA1C pending. - NPO after midnight. Will be Diabetic diet to follow. Super-morbid Obesity - BMI 60.9 - OHS/CARRI in history. Pyuria, present on admission. Active. - UA WBC 11-50, asymptomatic. - Urine Cx pending. Acetaminophen for mild pain when necessary. Bowel regimen Senna and MiraLAX scheduled and PRN. Zofran when necessary for nausea and vomiting. SubQ heparin one time, should decide to restart after OB consult. SCDs in place. High-risk medications: IV Dilaudid. Patient Status: Patient is admitted under inpatient status with expected length of stay greater than 2 midnights due to severity of presenting symptoms, risk of adverse event, and complexity of treatment plan. Pain Evaluation: Adequate Pain Control Resuscitation Status: CPR: Attempt Resuscitation Attending Statement The patient was seen and examined together with house staff on 04/03/2017 and I agree with the history, exam and plan as outlined in the note above. NICOLAS NAVA DO Apr 03, 2017 21:46 Amy Mccarthy DO Apr 04, 2017 00:19
[2017-04-03 23:05] VITALS: PULSE 86
--- NOTE | 2017-04-03 23:17 | NUR ---
Arrival to [facility] at 2120 Pt arrives to [facility] accompanied by family members. Pt is moved into bariatric bed and given dinner by family. She states pain is managable at this time and no apparent nausea. paged for pain management and to clarify if IV fluids are needed as pt will be NPO at midnight. Admission will be completed after family leaves the room for privacy. Care continues
[2017-04-04] VITALS (7 sets, daily range): BP systolic 118–138; BP diastolic 60–82; PULSE 76–92; RESP 16–22; O2SAT 93–94
[2017-04-04] MEDS ORDERED: MELO-259 PO (00:38)
[2017-04-04] MEDS ORDERED: IBUP400T22 PO (00:38)
[2017-04-04] MEDS: HYDROmorphone 0.5 mg/0.5 mL iSecure Syringe IVPUSH PRN ×4 (00:58→14:12)
--- NOTE | 2017-04-04 01:59 | CONS ---
[address] [address] CONSULTATION REPORT PATIENT: ORLANDO BARRAGAN : 1975 MR#: [id number] ADMIT: 04/03/2017 JOB ID: [id number] DATE OF SERVICE: 04/03/2017, at 23:45 hours. GYNECOLOGIC CONSULTATION: HISTORY OF PRESENT ILLNESS: The patient as a 41-year-old woman who presented to the emergency department on April 03, 2017, with three weeks of left lower quadrant pain, worsened during the preceding 1-2 days prior to arrival. She carries history of reported laparotomy with right oophorectomy in setting of tubo-ovarian abscess with sepsis in June [address] Lyn. She reportedly had a left ovarian cyst identified at that time, and then the visualized in 2015 by CAT scan at 5.4 x3 x 5.8 cm. It does not appear that she has had any followup since then until the last couple of weeks. With onset of left-sided pain recently, she underwent ultrasound on March 22, 2017, with demonstration of two simple left ovarian cysts, one at 4.3 x 3.3 x 3.6 cm, and another at 4.2 x 3.8 x 4.4 cm. There was normal blood flow in the left ovary. The right ovary was absent. The patient then subsequently currently returned due to progressive pain that was reportedly a 10/10. She also had associated nausea and vomiting. She received a lot of pain medication in the emergency department and this did not adequately resolve her pain; and thus, emergency department physician admitted her to the hospitalist service, and request [employer] consultation. Note that ultrasound and CAT scan studies from April 03, 2017, demonstrated mass that had changed since March 22, 2017 study, see diagnostic data below. The patient has not shown signs of infection. In summary, then, this patient was admitted to [facility] by emergency department physician to hospitalist service with left lower quadrant pain that was very significant, requiring a lot of pain medication, with finding of left adnexal mass that is changing over time, and growing compared in 2016; if in fact, the same mass, and apparently more complex than noted by sonogram about a week and half ago. Patient is admitted for pain control, with plan to discharge ultimately and to follow up with Dr. Foist, who PCP, Dr. Mejía, has referred to for ongoing management regarding the left adnexal mass. PHYSICAL EXAMINATION: On admission, weight 150 kg, BMI 60.9. Abdomen: Very mild tenderness with palpation in the left lower quadrant, no moderate or severe tenderness, no rebound tenderness or peritoneal signs, no acute surgical abdomen. No obvious mass palpated, note exam limitation due to morbid obesity. Pelvic examination not repeated as very recently performed by emergency department physician. Exam was described as limited, "due to body habitus." Unable to palpate cervix. No discharge. "Adnexal fullness" was not appreciated. There was apparently no blood. DIAGNOSTIC DATA: Ultrasound from April 03, 2017, demonstrated absence of right ovary, and 6.2 x 3.1 x 7.0 cm left ovarian/adnexal region mass, with loculated fluid and also normal-appearing ovarian tissue. Heterogeneous appearance. There was no definitive finding of neoplasm, torsion or hemorrhage, note that hemorrhagic changes could be present contributing to change in appearance over only a week and a half. Distinct tubo-ovarian mass not specifically identified. CAT scan from April 03, 2017, also demonstrated right ovary absent and 4.1 x 5.6 x 6.9 cm heterogeneous lesion, appearing to be a cystic structure in or around the left ovary, head, heterogeneous in appearance. There as no free fluid reported. Note that white blood cell count 9.9, hemoglobin 12.3, microcytic indices with MCV of 73.1, MCH 22.4, MCHC of 30.6%. Lactic acid normal at 0.8. GC and Chlamydia studies pending. Urinalysis with 11-50 WBCs and 3-10 RBCs. IMPRESSION: 1. Left lower quadrant pain that was significant on admission, suspect related to left adnexal mass, potentially related to hemorrhagic cyst, no specific evidence for torsion or infection at this time. 2. Left adnexal heterogeneous mass, change in characteristics, more complex, than noted on imaging from March 22, 2017. Potential for hemorrhagic cystic component, doubt torsion, infection, or neoplasm, although cannot completely exclude. 3. History of apparent right-sided tubo-ovarian abscess leading to laparotomy in 2013, with excision of at least right ovary and suspected adnexa. 4. Abnormal last period per patient report, note that endometrium reportedly normal and uterus normal in size and appearance per ultrasound on April 03, 2017, with only up to 1.9 cm left anterior myometrial fibroid. 5. Small intramural uterine fibroid, suspect asymptomatic. 6. Not currently sexually active. 7. Microcytic indices, although not anemic. 8. Rule out urinary tract infection, note pyuria. 9. Morbid obesity. 10. Diffuse fatty liver. 11. Ventral hernias (see CT scan January 01, 2017). 12. Diabetes, reportedly having used insulin in the past, although now off medication. Hemoglobin A1c pending. 13. Hypertension. 14. Heart failure history. 15. Asthma. 16. Past-reported hypoventilation syndrome and suspected sleep apnea. 17. Some type of pain medication use (Vicodin ?, indication?). 18. Multiple medication use, see admission note per emergency department physician, yet including insulin prescribed, lisinopril, chlorthalidone, loratadine, and antibiotics. 19. No known drug allergies. 20. Family history of hypertension. RECOMMENDATIONS: 1. [employer] consultation. 2. Discussed with patient the left pelvic pain is likely related to adnexal region mass, potential for hemorrhagic cyst as explanation for pain exacerbation, although precise etiology uncertain. Hospitalized for pain management, although the patient is hoping to go home tomorrow and to follow up with Dr. Lyn as currently being arranged per Dr. Mejía in [place] and to reunite with Dr. Lyn, who did her first surgery on right adnexal region. Cannot exclude the possibility of neoplasm, tubo-ovarian abscess, hydrosalpinx, torsion, etc., although ultrasound a week and a half ago demonstrated only simple cysts at that time and there is no specific ultrasonographic indication of torsion, infection, tubo-ovarian abscess, neoplasm, etc. We will; thus, track patient's pain overnight, vastly improved currently with only very mild tenderness on exam, and without any surgical signs. She will be kept n.p.o. overnight, although I do not suspect that she will need surgery at this time. I will discuss with Radiology in the morning the ultrasound findings and potential indication for any additional imaging to assist in evaluation whether currently or in the future. Patient is certainly not an ideal surgical candidate in light of the morbid obesity, diabetes, hypertension, asthma, potential obstructive airway, etc. Further clarification and tracking of left adnexal region by imaging over days, weeks and potentially months, to hopefully allow ongoing conservative management as opposed to any needed surgery, although time will tell. 3. Will thus determine and implement any additional imaging if needed, will follow up urine culture, and GC and Chlamydia studies. 4. As an outpatient, further discussion and evaluation of any type of menstrual aberration could also be accomplished, with patient having reported abnormal period most recently, and also found to have hypochromic and microcytic changes, although no true anemia.
[2017-04-04] MEDS: Ondansetron 2 mg/mL 2 mL Inj IVPUSH PRN (04:31)
[2017-04-04] MEDS ORDERED: HYDROmorphone 1 mg/mL Inj IVPUSH ONE ×2 (05:20→10:50)
--- NOTE | 2017-04-04 05:49 | NUR ---
Pain / Female OBGYN request Pt reports pain 10/10, coughing spasm induces nausea, dry heaving. Currently NPO and no IVF running, pt voiding small amounts of dark urine totalling 300 for this shift. MD notified, visited patient in room, and pain medication changed from Q4 to Q3. Pt ambulating to bathroom with steady gait. VS WNL, diaphoretic but afebrile. Care continues
[2017-04-04] MEDS ORDERED: HYDROmorphone 0.5 mg/0.5 mL iSecure Syringe IVPUSH PRN (08:30)
--- NOTE | 2017-04-04 09:20 | NUR ---
Off unit for Ultrasound.
--- NOTE | 2017-04-04 09:50 | NUR ---
BACK FROM ULTRASOUND
--- NOTE | 2017-04-04 10:00 | NUR ---
Pain Currently having a difficult time controlling pain. Pt states pain 8/10 cramping; like strong menstrual cramps. 1 mg IVP dilaudid given with minimal relief. Pt states she prefers the pain to be 4-5/10 and this time the dilaudid only brought it down to a 7. Paged md and new order for 1.5mg ivp dilaudid q3 hours. pt given a 1x dose upon arrival back from ultrasound with decent relief of 6/10. Care conts
--- NOTE | 2017-04-04 10:42 | NUR ---
Social Work: Screening/Readiness for Discharge/Multidisciplinary Rounds D: EMR reviewed. Pt is a 41 y/o female admitted for pelvic mass/intractable pelvic pain per H&P. Pt's insurance is [employer] and [facility]. Pt's PCP is Luke Mejía MD. Pt discussed in multidisciplinary rounds, pt anticipated to discharge no needs and return for outpt surgery. SW discussed possible SW needs with MD and medical team - no needs identified, no MD orders received. SW will continue to follow. A: Pt who is independent at baseline and capable of self-care per multidisciplinary rounds P: Pt likely to discharge today via POV and return for outpt surgery. SW will continue to follow for needs. RABIA Stephen
[2017-04-04] MEDS: Lactated Ringer's 1,000 ML IV SCH ×2 (11:09→19:35)
--- NOTE | 2017-04-04 12:37 | NUR ---
Update Spoke with Dr. Moncada and gave him on update on pt status. No new orders at this time. MD would like to read ultrasound and then make a decision for plan. Pt and family updated. Care conts
[2017-04-04 13:52] LABS: BASOPHILS % (AUTO) 0.2 % (0-3); EOSINOPHILS % (AUTO) 2.9 % (0-5); MONOCYTES % (AUTO) 5.9 % (4-12); Mean Corpuscular Hemoglobin 22.5 pg (27.0-35.0); Mean Corpuscular Volume 74.3 fL (81-100); NEUTROPHILS % (AUTO) 55.7 % (40-74); Platelet Count 318 bil/L (150-400)
[2017-04-04] MEDS: oxyCODONE-Acetamin 5-325 mg Tablet PO PRN ×3 (15:26→22:42)
--- NOTE | 2017-04-04 15:49 | PCM.PNMED ---
Subjective Date of Service Apr 04, 2017 Subjective Continues to have left lower quadrant pain requiring IV Dilaudid. remains afebrile. No leukocytosis or tachycardia Exam Vital Signs Vital Sign - Last Date Time Temp Pulse Resp B/P Pulse Ox O2 Delivery O2 Flow Rate FiO2 04/04/17 14:23 37.1 81 17 130/74 93 Room Air Intake and Output 04/03/17 04/03/17 04/04/17 Cumulative From/Thru 15:00 23:00 07:00 04/03/17 14:41 - 04/03/17 21:30 Intake Total 1000 ml 1000 ml Balance 1000 ml 1000 ml IV Total 1000 ml 1000 ml Exam General: No acute distress, well-developed, obese, well-nourished, appropriately interactive HEENT: Normocephalic, atraumatic. External ears without defect. Pupils equal, round, and reactive to light and accommodation. Anicteric sclerae, moist conjunctivae, and no lid lag. Oropharynx free of erythema and cobble stoning with moist mucosa. Neck: Supple with full range of motion. No jugular venous distension. No bruits. No lymphadenopathy or thyromegaly. Cardiovascular: Regular rate and rhythm with no murmurs, rubs, or gallops appreciated Pulmonary: Clear to auscultation bilaterally with no crackles, wheezes, or rhonchi. Normal respiratory effort with no use of accessory muscles. Abdomen: Bowel tones present. Soft, obese, with ventral scars midline, nondistended. No hepatosplenomegaly or masses appreciated.There is lower left quadrant tenderness to palpation without rebound, or guarding. Extremities: No clubbing, cyanosis, edema, or lymphadenopathy appreciated. Skin: Normal temperature, turgor, and texture; no rash, ulcers, or subcutaneous nodules appreciated. Neurological: Cranial nerves grossly intact. Normal muscle strength, tone, and bulk. Reflexes, coordination, and sensory function within normal limits. No known gait impairment. Psychiatric: Normal mood and affect. Alert and oriented to person, place, and time. IVs and Medications Medications Reviewed: Medications were reviewed in detail Lab and Diagnostics Result Diagram: 04/04/17 1335 04/04/17 1335 X-Rays, CTs and MRIs CT ABDOMEN AND PELVIS WITH CONTRAST IMPRESSION: 1. 41 x 56 x 69 mm heterogeneous cystic and solid lesion in the left adnexa. This is similar to but more prominent in size than the lesion appeared on the CT scan of 11/07/15 at which time it measured 5.4 x 3 x 5.8 mm. Malignancy is not excluded. No free fluid is identified. 2. Diffusely fatty liver. 3. Ventral hernias as described. Approved by: Teo Noriega M.D. on 04/03/2017 at 18:35 PROCEDURE: US PELVIC SONOGRAM + TRANSVAGINAL SONOGRAM INDICATIONS: LLQ abd pain, hx of TOA; also eval torsion IMPRESSION: 1. Other than a fibroid and nabothian cyst the uterus is normal. 2. The left ovary is enlarged and includes organs involved by a cystic structure. This is best seen on CT scan. It has enlarged since previous CT scans. Although unlikely malignancy cannot be excluded. Dictated by: Teo Noriega M.D. on 04/03/2017 at 18:38 Approved by: Teo Noriega M.D. on 04/03/2017 at 18:42 ADDENDUM: COMPARISON: [facility], CT, CT ABD PELVIS W CON, 11/07/2015, 19: 16. [facility], CT, ABD/PELVIS W/CON (PNL), 10/29/2014, 14:27. [facility], CT, ABD/PELVIS W/CON (PNL), 04/09/2014, 0:56. [facility], US, US PELVIC+TRANSVAG, 03/22/2017, 23:13. The patient was reexamined on 04/04/2017. The cystic structure involving the left adnexa adjacent and contiguous with the left ovary has increased in size and degree of dilatation now measuring roughly 6.4 x 7.5 x 3.0 cm and contains fine low level internal echoes with appearance suggesting either hemo salpinx or less likely pyosalpinx given patient's clinical presentation. Underlying malignancy is considered unlikely. The left ovary is heterogeneous which may be related to hemorrhagic cyst measuring 2.1 x 2.5 x 1.9 cm. Multiple simple cysts also are present largest measuring up to 23 mm. Right adnexa demonstrates no abnormalities. The right ovary as been removed. Continued sonographic followup is recommended. Dr. Moncada given results at 1145 hrs. 04/04/2017. Dictated by: Severiano GIBSONA Interpreted: Hung Ramos MD on 04/04/2017 at 13 :03 Approved by: Hung Ramos M.D. on 04/04/2017 at 14:21 Additional Diagnostics US PELVIC SONOGRAM + TRANSVAGINAL SONOGRAM IMPRESSION: 1. Other than a fibroid and nabothian cyst the uterus is normal. 2. The left ovary is enlarged and includes organs involved by a cystic structure. This is best seen on CT scan. It has enlarged since previous CT scans. Although unlikely malignancy cannot be excluded. Dictated by: Teo Noriega M.D. on 04/03/2017 at 18:38 Assessment & Plan Ms. Eliana Eli is a very pleasant 41 year old lady with a history insulin using diabetes mellitus currently not on medications, HTN, and CHF and right tubo-ovarian abscess (leading to surgical removal of her right ovary) who presents to the ED complaining of intermittent, non-radiating left lower quadrant abdominal pain for the last 3 weeks that worsened last night. Her current symptoms are similar to the time she was diagnosed with right tubo- ovarian abscess. She is NPO after midnight, pain control and OB consulted to see the patient in the AM. #Intractable pain, present on admission. Active. -Due to suspected left hydrosalpinx versus other noninfectious adnexal mass -Tubo-ovarian abscess unlikely given no fever, no leukocytosis, negative pro calcitonin -discussed case with Dr Moncada , will control pain and discharge for outpatient follow-up -Pain control: IV Dilaudid every 3 hours.will add Percocet for moderate pain - Hx of multiple abdominal surgeries and prior tuboovarian abscess. - C. Trach / N. Jean pending. - CT / US as above. Blood Culture sent #Diabetes - Not on home medications. - HA1C pending. - NPO after midnight. Will be Diabetic diet to follow. #Morbid Obesity - BMI 60.9 - OHS/CARRI in history. #Pyuria, present on admission. Active. - UA WBC 11-50, asymptomatic. - Urine Cx pending. Acetaminophen for mild pain when necessary. Bowel regimen Senna and MiraLAX scheduled and PRN. Zofran when necessary for nausea and vomiting. SubQ heparin one time, should decide to restart after OB consult. SCDs in place. High-risk medications: IV Dilaudid. Patient Status: Patient is admitted under inpatient status with expected length of stay greater than 2 midnights due to severity of presenting symptoms, risk of adverse event, and complexity of treatment plan. Disposition: Discharge in 1-2 days when pain is controlled with oral pain medications Resuscitation Status: CPR: Attempt Resuscitation Wilber Hyde MD Apr 04, 2017 15:49
--- NOTE | 2017-04-04 18:00 | NUR ---
Pain Dr. Moncada spoke with pt and family. All in agreement that continuation of conservative measures is correct plan. Pt started on percocet 1 tab. Pt states pain is much more controlled and lasts longer. Educated pt on importance of using po pain meds instead of IV pain meds. Pt tolerated lunch. IVF decreased to 60. Plan is for pt to be discharged home in AM after adequate pain control and then to follow up at a tertiary hospital for surgery consult. Care conts
[2017-04-05] MEDS: oxyCODONE-Acetamin 5-325 mg Tablet PO PRN ×3 (02:42→10:23)
[2017-04-05 05:57] VITALS: BP 140/96; PULSE 72; RESP 16; O2SAT 92
--- NOTE | 2017-04-05 06:02 | NUR ---
Pain Patient's pain has been managed well with one Percocet q4. Patient denies N/V. Vitals stable. Patient tolerating solid food. Room air. Daughter in room by bedside throughout the night. Care continues.
--- NOTE | 2017-04-05 10:49 | PCM.PNMED ---
Subjective Date of Service Apr 05, 2017 Subjective Continues to have LLQ pain but much improved. Afebrile. No nausea or vomiting. Exam Vital Signs Vital Sign - Last Date Time Temp Pulse Resp B/P Pulse Ox O2 Delivery O2 Flow Rate FiO2 04/05/17 05:57 36.8 72 16 140/96 92 Room Air Intake and Output 04/04/17 04/04/17 04/05/17 Cumulative From/Thru 15:00 23:00 07:00 04/03/17 14:41 - 04/05/17 06:36 Intake Total 800 ml 3443 ml 772 ml 6015 ml Output Total 330 ml 850 ml 1180 ml Balance 470 ml 2593 ml 772 ml 4835 ml Intake Oral 800 ml 1600 ml 2400 ml IV Total 1843 ml 772 ml 3615 ml Output Urine Total 330 ml 850 ml 1180 ml # Voids 3 3 # Bowel Movements 0 0 0 Exam General: No acute distress, well-developed, obese, well-nourished, appropriately interactive HEENT: Normocephalic, atraumatic. External ears without defect. Pupils equal, round, and reactive to light and accommodation. Neck: Supple with full range of motion. No jugular venous distension. No bruits. No lymphadenopathy or thyromegaly. Cardiovascular: Regular rate and rhythm with no murmurs, rubs, or gallops appreciated Pulmonary: Clear to auscultation bilaterally with no crackles, wheezes, or rhonchi. Normal respiratory effort with no use of accessory muscles. Abdomen: Bowel tones present. Soft, obese, with ventral scars midline, nondistended. No hepatosplenomegaly or masses appreciated.There is lower left quadrant tenderness to palpation without rebound, or guarding. Extremities: No clubbing, cyanosis, edema, or lymphadenopathy appreciated. Skin: Normal temperature, turgor, and texture; no rash, ulcers, or subcutaneous nodules appreciated. Neurological: Cranial nerves grossly intact. Normal muscle strength, tone, and bulk. Psychiatric: Normal mood and affect. Alert and oriented to person, place, and time. IVs and Medications Medications Reviewed: Medications were reviewed in detail Lab and Diagnostics Result Diagram: 04/04/17 1335 04/04/17 1335 X-Rays, CTs and MRIs CT ABDOMEN AND PELVIS WITH CONTRAST IMPRESSION: 1. 41 x 56 x 69 mm heterogeneous cystic and solid lesion in the left adnexa. This is similar to but more prominent in size than the lesion appeared on the CT scan of 11/07/15 at which time it measured 5.4 x 3 x 5.8 mm. Malignancy is not excluded. No free fluid is identified. 2. Diffusely fatty liver. 3. Ventral hernias as described. Approved by: Teo Noriega M.D. on 04/03/2017 at 18:35 PROCEDURE: US PELVIC SONOGRAM + TRANSVAGINAL SONOGRAM INDICATIONS: LLQ abd pain, hx of TOA; also eval torsion IMPRESSION: 1. Other than a fibroid and nabothian cyst the uterus is normal. 2. The left ovary is enlarged and includes organs involved by a cystic structure. This is best seen on CT scan. It has enlarged since previous CT scans. Although unlikely malignancy cannot be excluded. Dictated by: Teo Noriega M.D. on 04/03/2017 at 18:38 Approved by: Teo Noriega M.D. on 04/03/2017 at 18:42 ADDENDUM: COMPARISON: [facility], CT, CT ABD PELVIS W CON, 11/07/2015, 19: 16. [facility], CT, ABD/PELVIS W/CON (PNL), 10/29/2014, 14:27. [facility], CT, ABD/PELVIS W/CON (PNL), 04/09/2014, 0:56. [facility], US, US PELVIC+TRANSVAG, 03/22/2017, 23:13. The patient was reexamined on 04/04/2017. The cystic structure involving the left adnexa adjacent and contiguous with the left ovary has increased in size and degree of dilatation now measuring roughly 6.4 x 7.5 x 3.0 cm and contains fine low level internal echoes with appearance suggesting either hemo salpinx or less likely pyosalpinx given patient's clinical presentation. Underlying malignancy is considered unlikely. The left ovary is heterogeneous which may be related to hemorrhagic cyst measuring 2.1 x 2.5 x 1.9 cm. Multiple simple cysts also are present largest measuring up to 23 mm. Right adnexa demonstrates no abnormalities. The right ovary as been removed. Continued sonographic followup is recommended. Dr. Moncada given results at 1145 hrs. 04/04/2017. Dictated by: Severiano Falcon [facility] Interpreted: Hung Ramos MD on 04/04/2017 at 13 :03 Approved by: Hung Ramos M.D. on 04/04/2017 at 14:21 Additional Diagnostics US PELVIC SONOGRAM + TRANSVAGINAL SONOGRAM IMPRESSION: 1. Other than a fibroid and nabothian cyst the uterus is normal. 2. The left ovary is enlarged and includes organs involved by a cystic structure. This is best seen on CT scan. It has enlarged since previous CT scans. Although unlikely malignancy cannot be excluded. Dictated by: Teo Noriega M.D. on 04/03/2017 at 18:38 Assessment & Plan Ms. Eliana Eli is a very pleasant 41 year old lady with a history insulin using diabetes mellitus currently not on medications, HTN, and CHF and right tubo-ovarian abscess (leading to surgical removal of her right ovary) who presents to the ED complaining of intermittent, non-radiating left lower quadrant abdominal pain for the last 3 weeks that worsened last night. Her current symptoms are similar to the time she was diagnosed with right tubo- ovarian abscess. She is NPO after midnight, pain control and OB consulted to see the patient in the AM. #Intractable pain, present on admission. Active. -Due to suspected left hydrosalpinx with possible bleeding into cyst -Tubo-ovarian abscess unlikely given no fever, no leukocytosis, negative pro calcitonin -discussed case with Dr Moncada , will control pain and discharge tomorrow for outpatient follow-up. Patient needs to follow-up with in [place] who did her first surgery . PCP may also consider referring her to [facility] for robotic surgery given complicated postop course on prior laparotomy -Pain control: IV Dilaudid every 3 hours.. Percocet for moderate pain. Patient advised to spare IV narcotics for more severe pain - Hx of multiple abdominal surgeries and prior tuboovarian abscess. - CT / US as above. -Blood Culture pending #Diabetes - Not on home medications. #Morbid Obesity - BMI 60.9 - OHS/CARRI in history. #Pyuria, present on admission. Active. - UA WBC 11-50, asymptomatic. - Urine Cx mixed cristel -No symptoms. Will not treat Acetaminophen for mild pain when necessary. Bowel regimen Senna and MiraLAX scheduled and PRN. Zofran when necessary for nausea and vomiting. SubQ heparin one time, should decide to restart after OB consult. SCDs in place. High-risk medications: IV Dilaudid. Patient Status: Patient is admitted under inpatient status with expected length of stay greater than 2 midnights due to severity of presenting symptoms, risk of adverse event, and complexity of treatment plan. Disposition: Discharge tomorrow if pain is controlled with oral pain medications Resuscitation Status: CPR: Attempt Resuscitation Wilber Hyde MD Apr 05, 2017 10:49
[2017-04-05 11:54] VITALS: BP 132/63; PULSE 76; RESP 20; O2SAT 92
[2017-04-05 12:51] VITALS: BP 100/61; PULSE 74; RESP 18; O2SAT 98
[2017-04-05] MEDS ORDERED: oxyCODONE-Acetamin 5-325 mg Tablet PO PRN (13:52)
--- NOTE | 2017-04-05 14:09 | NUR ---
PAIN/ACTIVITY Patient rated her pain as 8/10. Stated that it is cramping/stabbing. Percocet 1 tab has not been effective for pain control. Dr. Hyde made aware. New orders for 2 tabs of Percocet received and administered. Will monitor effectivity. Tolerating liquids PO and her diet well. Denies nausea. No emesis noted. Denies SOB. Patient has been ambulating independently in the room. Gait is steady. Voiding without any problems. Addendum: 04/05/17 at 1453 by DAVE CHRISTIAN RN PAIN/ TRANSFER OF CARE Patient stated that her pain is better. Care endorsed to Chana Vance RN.
[2017-04-05] MEDS: Sodium Chloride LOK Flush 10 mL Syringe IVFLUSH SCH ×2 (16:30→22:27)
[2017-04-05 17:15] VITALS: BP 142/76; PULSE 66; RESP 18; O2SAT 94
[2017-04-05] MEDS: oxyCODONE-Acetamin 10-325 mg Tablet PO PRN ×2 (18:23→22:27)
[2017-04-05 19:30] VITALS: BP 136/77; PULSE 64; RESP 18; O2SAT 93
[2017-04-06] MEDS: Ondansetron 2 mg/mL 2 mL Inj IVPUSH PRN (01:00)
[2017-04-06] MEDS: oxyCODONE-Acetamin 10-325 mg Tablet PO PRN ×4 (02:27→14:28)
[2017-04-06 05:14] VITALS: BP 146/82; PULSE 60; RESP 18; O2SAT 95
--- NOTE | 2017-04-06 05:28 | NUR ---
Pain Continue with Q4 hour PO pain medication, reports change to higher dose yesterday providing improved pain control. Able to rest some in night. Hourly rounding ongoing.
--- NOTE | 2017-04-06 07:37 | PROG NOTE ---
[address] [address] PROGRESS NOTE PATIENT: ORLANDO BARRAGAN : 1975 MR#: [id number] ADMIT: 04/03/2017 JOB ID: [id number] GYNECOLOGIC PROGRESS NOTE: DATE: 04/04/2017 SUBJECTIVE: The patient was admitted to [facility] on the evening of April 03, 2017, with left-sided pelvic pain that could not be managed in the emergency department. She was found to have left-sided pelvic mass that, according to the radiologists, has probably been present since at least spring when comparing various images. Several radiologists and ultrasonographers examined images obtained on April 03, 2017, as well as repeat ultrasound from April 04, 2017, and conclusion was that left-sided mass was probably gradually growing hydrosalpinx, plus left ovary perhaps having had a hemorrhagic cyst recently. On clinical grounds, it has been thought that recent hemorrhagic cyst could have accounted for recent more significant pelvic pain while gradually growing hydrosalpinx could be an important finding, although may not be accounting for the more acute reason for admission. Note that the patient has not had signs of infection, with normal white blood cell count, normal temperature, and normal procalcitonin levels. Her pain has persisted, although there is effort to switch her to pain pills from IV Dilaudid in an effort to have more sustainable pain management. Nausea and vomiting has resolved, so this is a step of progress and oral feeding is in progress. DISCUSSION: I have had a very lengthy discussion with the patient, her sister and her parents in regard to the collection of findings radiologically as well as her clinical symptomatology. At first, they seemed very frustrated that we have not launched directly into surgery to take out the left adnexal mass that likely represents hydrosalpinx per multiple radiologists and ultrasonographers. However, ultimately there seemed to be a great understanding that whereas at best conclusion there probably is a hydrosalpinx on the left (versus other mass possibilities, discussed), that more likely the recent discomfort that led to hospitalization is probably not related to the more chronic cystic structure but that has been there for some time, yet more likely due to hemorrhagic cyst that should run its course and hopefully we will continue to see the patient feel better. If she improves like we think she will, and fortunately without specific signs or symptoms of infection, then we hopefully will be able to get her home and then arrange consultation with appropriate pelvic surgeon to discuss the persistent left-sided mass that she would like to have removed to know exactly what it is as well as to prevent future infection or other problem (note that she had the right ovary and tube out a few years ago due to abscess). She is very concerned that this chronic cystic structure will become a bigger and bigger problem in the future. I understand her concerns and I also have indicated that she is a very significant surgical risk, note very difficult recovery and wound problems following her last surgery. She is morbidly obese, she is diabetic, has hypertension, etc. They understand these things, and I have recommended that she consider a visit with the [facility] in [place] for consultation regarding the more chronic mass once she is an outpatient, for potential for robotic surgery (see last operative report and later recovery visits for challenges, 2013). She also could see Dr. Lyn, automotive designer in [place], which has been her original plan, as this doctor had done her prior surgery in 2013. She is leaning towards going to [place], however, for consideration of robotic surgery. We will see how she does over the next day or two, and then hopefully be able to discharge her if continued improvement as suspected and then have the consultation regarding the chronic mass. All questions have been answered. No guarantee has been stated or implied. The patient and her family understand that our goal is to observe her closely and see improvement from the current situation, likely hemorrhagic cyst and associated pain, yet then place her in the best hands where appropriate surgical procedures and appropriate medical support and all come together to reduce her risks of surgery if undertaken for the more chronic mass. IMPRESSION: 1. Left lower quadrant pain, observing, switching to oral pain meds, and advancing diet, perhaps related to recent left ovarian hemorrhagic cyst. 2. More chronic-appearing left adnexal region cystic mass, gradually growing, suspect hydrosalpinx per multiple radiologists and certification engineer's opinions currently. 3. History of right ovarian abscess leading to surgical intervention with significant surgical and postoperative challenges. 4. Morbid obesity. 5. Diabetes. 6. Hypertension. 7. See additional notes for other details and diagnoses. PLAN: Continue current management, hopefully for discharge in the next 1-2 days, and then to follow up as an outpatient regarding the more chronic mass with consideration for its excision.
--- NOTE | 2017-04-06 07:45 | PROG NOTE ---
[address] [address] PROGRESS NOTE PATIENT: ORLANDO BARRAGAN : 1975 MR#: [id number] ADMIT: 04/03/2017 JOB ID: [id number] GYNECOLOGIC PROGRESS NOTE: DATE: 04/05/2017 SUBJECTIVE: The patient was admitted to [facility] with left lower quadrant pain, suspected related to hemorrhagic ovarian cyst. Pain is now improving by at least half, she is on oral pain medications, she is moving around better, nausea and vomiting have stayed away, she is eating and drinking well. She knows that she may be able to be discharged by April 06, 2017, full discussion. Note that she also has been found to have the more chronic-appearing left-sided adnexal area mass, probably left hydrosalpinx according to radiologists/ultrasonographers. She carries a history of right ovary and tube removed due to right ovarian abscess. Fortunately, there has been no sign of infection during this hospitalization, yet the patient is very concerned regarding the cystic mass that is gradually enlarging, suspect enlarging hydrosalpinx, and she would like to have it removed. She has understood her surgical risks, and the stormy course after her last surgery in 2013. I have suggested that she can see the surgeon who did her last case, i.e. Dr. Lyn in [place], if she desires, as she had, in fact, planned to see, although she could also simply be referred to [facility], example Dr. Guillory in [place] associated with [facility]. This group, Dr. Guillory and his partners are able to do robotic surgery which could help reduce risks in this morbidly obese patient with difficult last surgery and recovery, if decision is made to remove the left adnexal area mass, chronic, gradually growing, suspected hydrosalpinx. Cannot rule out other etiologies. The patient seems inclined to want to see Dr. Guillory or one of his partners for these positive reasons, all in an effort to help reduce her risks but achieve her goals of mass removal. She feels that her family doctor, Dr. Luke Mejía, could make this referral as an outpatient. I will talk with Dr. Mejía in the next couple of days and let him know of her course here in the hospital and the value of referral for consideration of mass removal as desired per patient. PLAN: Continue present management, suspect that pain will further improve over time, hoping for discharge tomorrow, and then referral to [facility] in [place] for possible later robotic surgery for the chronic mass. All questions have been answered. No guarantees have been stated or implied. I have also discussed this management plan with hospital security compliance specialist.
[2017-04-06] MEDS: Sodium Chloride LOK Flush 10 mL Syringe IVFLUSH SCH ×2 (08:30→16:30)
[2017-04-06 09:00] VITALS: BP 135/86; PULSE 73; RESP 20; O2SAT 94
[2017-04-06] MEDS ORDERED: HYDR-4003 PO ×2 (09:52→15:37)
[2017-04-06] MEDS ORDERED: POLY17PO6 PO (09:52)
[2017-04-06] MEDS ORDERED: Phenylephrine-Mineral Oil 28 Gm Ointment RECTAL PRN (14:05)
[2017-04-06] MEDS ORDERED: Witch Hazel-Glycerin Pads TOPICAL PRN (14:05)
[2017-04-06] MEDS ORDERED: Witch Hazel-Glycerin Pads TOPICAL ONE (14:05)
[2017-04-06] MEDS ORDERED: Phenylephrine-Mineral Oil 28 Gm Ointment RECTAL ONE (14:05)
[2017-04-06] MEDS ORDERED: OXYC-466 PO ×2 (15:00→15:39)
--- NOTE | 2017-04-06 15:10 | PCM.DIMED ---
Discharge Instructions Date of Service Apr 06, 2017 Dates of Hospitalization Apr 03, 2017 at 20:31 Discharge Diagnosis Discharge Diagnosis acute dx 1. Left lower quadrant pain, observing, switching to oral pain meds, and advancing diet, perhaps related to recent left ovarian hemorrhagic cyst. 2. More chronic-appearing left adnexal region cystic mass, gradually growing , suspect hydrosalpinx per multiple radiologists and net architect's opinions currently. chronic dx 3. History of right ovarian abscess leading to surgical intervention with significant surgical and postoperative challenges. 4. Morbid obesity. 5. Diabetes. 6. Hypertension. Diet Discharge Diet: No restrictions Activity Discharge Activity: No restrictions Call your provider Call your provider for: Fever or Chills, Other Patient Instructions Patient Instructions You were hospitalized with persistent pain on your belly. follow up CT and ultrasound suggested that this is likely related to ruptured cyst on left side and possible growing mass. You were evaluated by Dr.Bynum ARCHER, who recommended referral to pelvic surgeon who has more expertise on Robotic pelvic surgery. Follow up plan was discussed with on the day of discharge. Please follow up with tomorrow(please confirm the date and the time today) Please continue Percocet 2tab every 3-4hours as needed for your pain. Follow-up Provider: Luke Mejía MD Follow-up with PCP in: 1 week Gavin Mendoza MD Apr 06, 2017 15:02
--- NOTE | 2017-04-06 15:17 | PCM.DC.MED ---
Discharge Summary Date of Service Apr 06, 2017 Dates of Hospitalization Date of Hospital Admission Apr 03, 2017 at 20:31 Date of Discharge: Apr 06, 2017 Providers: Admitting Physician: Amy Mccarthy DO Primary Care Physician: Luke Mejía MD Attending Physician: Gavin Garnica MD Diagnosis at Time of Discharge Diagnosis at Time of Discharge acute dx 1. Left lower quadrant pain, observing, switching to oral pain meds, and advancing diet, perhaps related to recent left ovarian hemorrhagic cyst. 2. More chronic-appearing left adnexal region cystic mass, gradually growing , suspect hydrosalpinx per multiple radiologists and preconstruction manager's opinions currently. chronic dx 3. History of right ovarian abscess leading to surgical intervention with significant surgical and postoperative challenges. 4. Morbid obesity. 5. Diabetes. 6. Hypertension. Procedures XRay, CTs & MRIs CT ABDOMEN AND PELVIS WITH CONTRAST IMPRESSION: 1. 41 x 56 x 69 mm heterogeneous cystic and solid lesion in the left adnexa. This is similar to but more prominent in size than the lesion appeared on the CT scan of 11/07/15 at which time it measured 5.4 x 3 x 5.8 mm. Malignancy is not excluded. No free fluid is identified. 2. Diffusely fatty liver. 3. Ventral hernias as described. Approved by: Teo Noriega M.D. on 04/03/2017 at 18:35 PROCEDURE: US PELVIC SONOGRAM + TRANSVAGINAL SONOGRAM INDICATIONS: LLQ abd pain, hx of TOA; also eval torsion IMPRESSION: 1. Other than a fibroid and nabothian cyst the uterus is normal. 2. The left ovary is enlarged and includes organs involved by a cystic structure. This is best seen on CT scan. It has enlarged since previous CT scans. Although unlikely malignancy cannot be excluded. Dictated by: Teo Noriega M.D. on 04/03/2017 at 18:38 Approved by: Teo Noriega M.D. on 04/03/2017 at 18:42 ADDENDUM: COMPARISON: [facility], CT, CT ABD PELVIS W CON, 11/07/2015, 19: 16. [facility], CT, ABD/PELVIS W/CON (PNL), 10/29/2014, 14:27. [facility], CT, ABD/PELVIS W/CON (PNL), 04/09/2014, 0:56. [facility], US, US PELVIC+TRANSVAG, 03/22/2017, 23:13. The patient was reexamined on 04/04/2017. The cystic structure involving the left adnexa adjacent and contiguous with the left ovary has increased in size and degree of dilatation now measuring roughly 6.4 x 7.5 x 3.0 cm and contains fine low level internal echoes with appearance suggesting either hemo salpinx or less likely pyosalpinx given patient's clinical presentation. Underlying malignancy is considered unlikely. The left ovary is heterogeneous which may be related to hemorrhagic cyst measuring 2.1 x 2.5 x 1.9 cm. Multiple simple cysts also are present largest measuring up to 23 mm. Right adnexa demonstrates no abnormalities. The right ovary as been removed. Continued sonographic followup is recommended. Dr. Moncada given results at 1145 hrs. 04/04/2017. Dictated by: Severiano Falcon RR Interpreted: Hung Ramos MD on 04/04/2017 at 13 :03 Approved by: Hung Ramos M.D. on 04/04/2017 at 14:21 Other Diagnostics US PELVIC SONOGRAM + TRANSVAGINAL SONOGRAM IMPRESSION: 1. Other than a fibroid and nabothian cyst the uterus is normal. 2. The left ovary is enlarged and includes organs involved by a cystic structure. This is best seen on CT scan. It has enlarged since previous CT scans. Although unlikely malignancy cannot be excluded. Dictated by: Teo Noriega M.D. on 04/03/2017 at 18:38 Brief History HPI obtained by Dr. Vidal on 04/03 Ms. Eliana Eli is a very pleasant 41 year old lady with a history insulin using diabetes mellitus currently not on medications, HTN, and CHF and right tubo-ovarian abscess (leading to surgical removal of her right ovary) who presents to the ED complaining of intermittent, non-radiating left lower quadrant abdominal pain for the last 3 weeks that worsened last night. She describes it as a stabbing pain and rates it 10/10 in severity like "menstrual pain times 50." She reports mild chills, nausea, dry heaves and constipation. She denies abnormal vaginal discharge, abnormal vaginal bleeding, dysuria, hematochezia, hematuria, fever, diarrhea and chest pain. She is not sexually active. She also states that before her previous visit, she did experience heavy, abnormal vaginal bleeding. Her current symptoms are similar to the time she was diagnosed with right tubo- ovarian abscess. In the ED the patients vitals were as follows: T - 36.7, HR - 79, RR - 16, BP - 138/78, 98 % RA. CT abdomen - 41 x 56 x 69 mm heterogeneous cystic and solid lesion in the left adnexa. This is similar to but more prominent in size than the lesion appeared on the CT scan of 11/07/15 at which time it measured 5.4 x 3 x 5.8 mm. Malignancy is not excluded. No free fluid is identified. Pelvis US - The left ovary is enlarged and includes organs involved by a cystic structure. This is best seen on CT scan. It has enlarged since previous CT scans. Although unlikely malignancy cannot be excluded. In the ED patient received - Ketorolac 15 mg injection, zofran 4mg x 2, dilaudid 0.5-1 mg x2, 1 L NS, NPO after midnight. Hospital Course Ms. Eliana Eli is a very pleasant 41 year old lady with a history insulin using diabetes mellitus currently not on medications, HTN, and CHF and right tubo-ovarian abscess (leading to surgical removal of her right ovary) who presents to the ED complaining of intermittent, non-radiating left lower quadrant abdominal pain for the last 3 weeks that worsened last night. Her current symptoms are similar to the time she was diagnosed with right tubo- ovarian abscess. She is NPO after midnight, pain control and OB consulted to see the patient in the AM. Brief hospital course pt was admitted to hospital mainly for pain control and evaluated by , MACHINE TOOL TECHNOLOGY INSTRUCTOR. This chronic pain was believed to be from recent left ovarian hemorrhagic cyst and chronic-appearing left adnexal region cystic mass, gradually growing, suspect hydrosalpinx per multiple radiologists and preconstruction manager's. Consensus was that given previous complicated postop course from prior Laparotomy, patient should be evaluated by [facility] in [place], "" for consultation regarding the more chronic mass for potential for robotic surgery. Pain was initially not controlled well with dilaudid iv q3h, eventually controlled with percocet 10/325 q4h prn dosing. Patient remained clinically stable, tolerated diet without GI symptoms, deemed safe for discharge. Case was informed to prior to d/c regarding follow up plan, who agreed to continue to care, pt will likely see this week. chronic dx #Diabetes , Not on home medications. #Morbid Obesity, BMI 60.9, OHS/CARRI in history , remained stable #Pyuria, UA WBC 11-50, asymptomatic, Urine Cx grew mixed cristel, no tx given Exam Vital Signs (Last) Date Time Temp Pulse Resp B/P Pulse Ox O2 Delivery O2 Flow Rate FiO2 04/06/17 09:00 36.8 73 20 135/86 94 Room Air Exam pt was examined on the day of discharge, abdomen remained benign, soft, nontender, nondistended Test 04/03/17 15:50 04/03/17 16:56 04/03/17 17:02 04/03/17 17:31 Magnesium Level 2.0mg/dL (1.6-2.6) Lipase 28U/L (13-60) Lactic Acid Level 0.8mmol/L (0.4-2.0) Chlamydia trachomatis DNA (ROSA) Negative (Negative) Neisseria gonorrhoeae DNA (ROSA) Negative (Negative) Urine Color Dark yellow (YELLOW) Urine Appearance Cloudy (CLEAR,HAZY) Urine pH 6.0 (5.0-8.0) Urine Specific [place] 1.030 (1.003-1.035) Urine Protein Tracemg/dL (NEG,TRACE) Urine Glucose (UA) Negativemg/dL (NEGATIVE) Urine Ketones Negativemg/dL (NEGATIVE) Urine Occult Blood Trace (NEGATIVE) Urine Nitrite Negative (NEGATIVE) Urine Bilirubin Negative (NEGATIVE) Urine Urobilinogen Normalmg/dL (NORMAL) Urine Leukocyte Esterase Trace (NEGATIVE) Urine RBC 3-10/hpf (0-2) Urine WBC 11-50/hpf (0-5) Urine Epithelial Cells Moderate/hpf (NONE-MOD) Urine Crystals None seen (NONE SEEN) Urine Bacteria Few/hpf (NONE-FEW) Urine Hyaline Casts None/lpf (NONE) Urine Granular Casts None seen (NONE SEEN) Urine Waxy Casts None seen (NONE SEEN) Urine Red Blood Cell Casts None seen (NONE SEEN) Urine White Blood Cell Casts None seen (NONE SEEN) Urine Mucus Present (None Seen) Urine Trichomonas None seen (NONE SEEN) Urine Yeast None (NONE SEEN) Urinalysis Comment None Urine Culture Reflexed Indicated Test 04/04/17 13:35 White Blood Count 9.7th/mm3 (3.8-10.1) Red Blood Count 5.06mil/mm3 (3.90-5.20) Hemoglobin 11.4g/dL (12.0-15.6) Hematocrit 37.6% (35.0-46.0) Mean Corpuscular Volume 74.3fL (81-100) Mean Corpuscular Hemoglobin 22.5pg (27.0-35.0) Mean Corpuscular Hemoglobin Concent 30.3% (32.0-37.0) Red Cell Distribution Width 16.5% (12.3-15.4) Platelet Count 318bil/L (150-400) Neutrophils (%) (Auto) 55.7% (40-74) Lymphocytes (%) (Auto) 35.1% (14-46) Monocytes (%) (Auto) 5.9% (4-12) Eosinophils (%) (Auto) 2.9% (0-5) Basophils (%) (Auto) 0.2% (0-3) Sodium Level 142mEq/L (134-144) Potassium Level 5.2mEq/L (3.5-5.2) Chloride Level 104mEq/L (97-108) Carbon Dioxide Level 25mmol/L (18-29) Blood Urea Nitrogen 9mg/dL (6-24) Creatinine 0.85mg/dL (0.57-1.00) Estimat Glomerular Filtration Rate 105mL/min (>59) Glucose Level 140mg/dL (60-99) Calcium Level 8.5mg/dL (8.5-10.1) Total Bilirubin 0.6mg/dL (0.0-1.2) Aspartate Amino Transf (AST/SGOT) 30U/L (0-50) Alanine Aminotransferase (ALT/SGPT) 20U/L (0-32) Alkaline Phosphatase 90U/L (25-150) Total Protein 7.2g/dL (6.4-8.4) Albumin 3.7g/dL (3.4-5.0) Procalcitonin 0.06ng/mL (0.00-0.08) Discharge Medications Discharge Medications Loratadine (Claritin) 10 Mg Capsule 10 MG PO DAILY (Reported) Meloxicam (Meloxicam) 7.5 Mg Tablet 7.5 MG PO BID (Reported) As needed Hydrocodone-Acetaminophen 5-325 mg (Hydrocodone-Acetaminophen 5-325 mg) 1 Each Tablet 1 TABLET PO Q4H PRN PRN For Pain Prescribed by: GAVIN GARNICA MD Hydroxyzine Pamoate (HydrOXYzine Pamoate) 25 Mg Capsule 25-50 MG PO HS PRN PRN For Insomnia (Reported) Polyethylene Glycol 3350 (Miralax) 17 Gm Powd.pack 17 GM PO DAILY PRN PRN For Constipation Prescribed by: GAVIN GARNICA MD oxyCODONE-Acetaminophen 10-325 mg (oxyCODONE-Acetaminophen 10-325 mg) 1 Each Tablet 2 TAB PO Q4H PRN PRN For Pain Prescribed by: GAVIN GARNICA MD Miscellaneous Medications Ibuprofen (Ibuprofen) 400 Mg Tablet 800 MG PO (Reported) Followup Plan Disposition: home Discharge Diet: No restrictions Discharge Activity: No restrictions Patient Instructions You were hospitalized with persistent pain on your belly. follow up CT and ultrasound suggested that this is likely related to ruptured cyst on left side and possible growing mass. You were evaluated by Dr.Bynum ARCHER, who recommended referral to pelvic surgeon who has more expertise on Robotic pelvic surgery. Follow up plan was discussed with on the day of discharge. Please follow up with tomorrow(please confirm the date and the time today) Please continue Percocet 2tab every 3-4hours as needed for your pain. Follow-up Provider: Luke Mejía MD Follow-up with PCP in: 1 week Time spent 65min Gavin Garnica MD Apr 06, 2017 15:17 Hydrocodone-Acetaminophen 5-325 mg (Hydrocodone-Acetaminophen 5-325 mg) 1 Each Tablet 1 TABLET PO Q4H PRN PRN For Pain Prescribed by: GAVIN GARNICA MD Hydroxyzine Pamoate (HydrOXYzine Pamoate) 25 Mg Capsule 25-50 MG PO HS PRN PRN For Insomnia (Reported) Polyethylene Glycol 3350 (Miralax) 17 Gm Powd.pack 17 GM PO DAILY PRN PRN For Constipation Prescribed by: GAVIN GARNICA MD oxyCODONE-Acetaminophen 10-325 mg (oxyCODONE-Acetaminophen 10-325 mg) 1 Each Tablet 2 TAB PO Q4H PRN PRN For Pain Prescribed by: GAVIN GARNICA MD Miscellaneous Medications Ibuprofen (Ibuprofen) 400 Mg Tablet 800 MG PO (Reported) Followup Plan Discharge Diet: No restrictions Discharge Activity: No restrictions Patient Instructions You were hospitalized with persistent pain on your belly. follow up CT and ultrasound suggested that this is likely related to ruptured cyst on left side and possible growing mass. You were evaluated by Dr.Bynum ARCHER, who recommended referral to pelvic surgeon who has more expertise on Robotic pelvic surgery. Follow up plan was discussed with on the day of discharge. Please follow up with tomorrow(please confirm the date and the time today) Please continue Percocet 2tab every 3-4hours as needed for your pain. Follow-up Provider: Luke Mejía MD Follow-up with PCP in: 1 week Gavin Garnica MD Apr 06, 2017 15:17
--- NOTE | 2017-04-06 16:16 | NUR ---
Social Work: Discharge D: EMR reviewed. Pt discussed multidisciplinary rounds. Pt to d/c today. Pt to d/c via POV. Pt is independent at baseline. No d/c needs identified. A: Pt who is independent at baseline and capable of self-care P: Pt is independent at baseline. No d/c needs identified. Pt to d/c via POV. Yari Conklin BED TEACHER
--- NOTE | 2017-04-06 17:15 | NUR ---
DISCHARGE Percocet 10 1 tab PO has been adequate for pain control. Tolerating liquids PO and her diet well. Denies nausea. No emesis noted. Denies SOB. Patient has been ambulating independently in the room. Gait is steady. Voiding without any problems. IV saline lock d/cd. Discharge instructions, care notes and prescription was given to the patient and she verbalized understanding. Discharged to home with her family and all her personal belongings. (Copy of D/ C is in the chart).
== END 2017-04-06 17:06 | disposition home or self-care (01) | DRG 758 ==
LOC: SED 14:39 → OSC 20:31 → OBSVTOIN 20:31 → OSC 21:13
PROVIDERS: ADMIT Internal Medicine; ATTEND Internal Medicine
DX: N70.11 Chronic salpingitis (principal); E66.2 Morbid (severe) obesity with alveolar hypoventilation; I10 Essential (primary) hypertension; Z68.44 Body mass index [BMI] 60.0-69.9, adult; E11.9 Type 2 diabetes mellitus without complications; Z79.4 Long term (current) use of insulin; Z90.721 Acquired absence of ovaries, unilateral; Z87.891 Personal history of nicotine dependence